=== PATIENT | female | born 1955 | race Caucasian/White ===

== ENCOUNTER 2024-08-11 06:01 | Day surgery (SDC) | payer MEDICARE, SELFPAY ==
[2024-08-11 06:18] VITALS: BMI 25.7
[2024-08-11 06:45] VITALS: BP 149/84; PULSE 65; RESP 16; TEMP 36.7; O2SAT 96
[2024-08-11] MEDS: SODIUM CHLORIDE 0.9 % (FLUSH) 10 ML SYRINGE IVF (06:47)
[2024-08-11] MEDS: BUPIVACAINE 0.25% 30 ML INJECTION (07:30)
[2024-08-11] MEDS: CEFAZOLIN 2 GM INJ IVP (07:39)
--- NOTE | 2024-08-11 07:47 | CRLHL7_ITS ---
For Patients: As a result of the Cures Act, medical imaging exams and procedure reports are released immediately into your electronic medical record. You may view this report before your referring provider. If you have questions, please contact your health care provider. Indication: RT INTRA OP FOOT HAMMER TOE Technique: One fluoroscopic image of the right forefoot. Fluoroscopic time 15.9 seconds. IMPRESSION: Fluoroscopic guidance for surgery to the forefoot. Dictated by Cash Lau MD @ 08/11/2024 10:20:27 AM (Electronically Signed)
--- NOTE | 2024-08-11 07:47 | CRLHL7_ITS ---
For Patients: As a result of the Cures Act, medical imaging exams and procedure reports are released immediately into your electronic medical record. You may view this report before your referring provider. If you have questions, please contact your health care provider. Indication: SURG FOR INTRA OP HAMMERTOE Technique: One fluoroscopic image of the left foot. Fluoroscopic time 20.3 seconds. IMPRESSION: Fluoroscopic guidance for surgery to the 4th toe. Dictated by Cash Lau MD @ 08/11/2024 10:19:38 AM (Electronically Signed)
[2024-08-11 09:58] VITALS: BP 122/69; PULSE 63; RESP 16; TEMP 36.6; O2SAT 98
[2024-08-11 10:00] VITALS: BP 121/72; PULSE 64; RESP 16; O2SAT 98
--- NOTE | 2024-08-11 10:02 | P.ANES_ITS ---
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
[2024-08-11 10:15] VITALS: BP 132/65; PULSE 66; RESP 16; O2SAT 98
[2024-08-11 10:30] VITALS: BP 139/76; PULSE 55; RESP 16; O2SAT 98
[2024-08-11] MEDS: OxyCODONE/APAP 5-325 TABLET PO (10:57)
[2024-08-11] MEDS: hydrOXYzine pamoate 25 MG CAPSULE PO (10:58)
[2024-08-11 11:00] VITALS: BP 142/68; PULSE 64; RESP 16; O2SAT 98
--- NOTE | 2024-08-11 16:30 | W.PODPROC_ITS ---
Date of Procedure: 08/11/24 Surgeon: Fab Mcginnis DPM Pre-op Diagnosis: 1. Hammertoe deformity 3rd digit left 2. Hammertoe deformity 4th digit left 3. Hammertoe deformity 3rd digit right 4. Hammertoe deformity 4th digit right Post-op Diagnosis: 1. Hammertoe deformity 3rd digit left 2. Hammertoe deformity 4th digit left 3. Hammertoe deformity 3rd digit right 4. Hammertoe deformity 4th digit right Type of Procedure: 1. Hammertoe repair 3rd digit left 2. Hammertoe repair 3rd digit right 3. Hammertoe repair 4th digit right 4. Flexor tenotomy 4th digit left Indications: Patient had previous hammertoe surgery and has had ongoing issues. She is in need of revision surgery. Reviewed the procedure, recovery, expectations potential complications. These include but are not limited to: Poor wound healing, infection, under correction, over correction, continued pain, potential need for future surgery, deep venous thrombosis, pulmonary embolism, complex regional pain syndrome, possible . She understands risks written consent was obtained. All questions answered. Site marked. Procedure Description: Patient brought the operating room placed in a supine position on the operating table. IV sedation was initiated local anesthetic injected into bilateral feet. She was prepped and draped in sterile fashion. Standard time-out protocol followed. Left foot was exsanguinated and the tourniquet inflated to 250 mm Hg. Linear incision was made over the PIPJ of the 3rd digit left foot. Incision was carried down through skin subcutaneous tissues. Transverse incision made through the extensor tendon and joint capsule. Mediolateral collateral ligaments released. Significant amount of scar tissue throughout the area. Sagittal saw was then used to resect the remnant of the head of the proximal phalanx and the base of the middle phalanx. An attempt was made to place a retro fuse screw but unfortunately the plantar cortex fractured. We then tried to pass a 2.0 mm screw from distal unfortunately no good bone could be purchase d. Finally we attempted K-wire fixation which also failed. This point we remodeled the proximal phalangeal head remove all prominence medial and lateral. I removed a small amount of bone from the lateral middle phalanx. We irrigated normal sterile saline. Was able to bring in of extensor tendon together to hold the toe in a rectus position. 4-0 Vicryl was used to reinforce the tendon. Skin was then closed with 4-0 Prolene. Third toe remained in a rectus position. Stab incision was made with a 6100 [place] blade plantar PIPJ 4th toe and the flexor tendon released. 0.045 smooth K-wire introduced in the tip of the toe driven through the distal and middle phalanx and into the proximal phalanx. This held the toe in rectus position. K-wire was bent cut and capped. Single suture placed on plantar incision with 4-0 Prolene. Sterile dressing was applied. Tourniquet was released capillary fill time returned all digits. The right foot was exsanguinated the tourniquet inflated. Linear incision was made over the PIPJ 3rd toe. Transverse incision was made through the extensor tendon and joint capsule. The medial and lateral collateral ligaments released. Oscillating saw used to resect the head of the proximal phalanx and base of the middle phalanx. Guide pin was placed into the base of the middle phalanx and driven out the tip of the toe. It was then wrapped retrogradely drilled into the proximal phalanx. Position checked with C-arm. A 30 mm x 2.0 mm cannulated cancellous screw was inserted using standard technique. Excellent compression noted at the fusion site. Area was thoroughly irrigated normal sterile saline. Extensor tendon was repaired with 4-0 Vicryl and skin closed with 4-0 Prolene. C-arm confirmed excellent position. Linear incision was made over the 4th toe PIPJ right foot. Incision carried down through skin subcutaneous tissues. Transverse incision made through the extensor tendon. Mediolateral collateral ligaments released. Head of the proximal phalanx and base of the middle phalanx were resected with an oscillating saw. Guide pin was placed in the base of the middle phalanx driven out through the tip of the toe. This was then driven retrogradely back into the proximal phalanx. 2.0 mm by 30 mm cannulated cancellous screw was inserted using standard technique. Excellent compression of the fusion site noted. The area was thoroughly irrigated normal sterile saline. Extensor tendon was repaired with 4-0 Vicryl and skin closed with 4-0 Prolene. C-arm confirmed excellent position. Sterile dressing was applied. Tourniquet was released and normal capillary fill time returned all digits. She was transferred from OR to PACU vital signs stable vascular status intact to bilateral feet. She will be discharged per same-day surgery protocol. She is to wear stiff-soled surgical shoes at all times. She is weight-bearing as tolerated. She is given oxycodone for pain. Follow up in clinic in 2 days. Complications: Fixation for the 3rd toe left foot was not possible. Anesthesia: MAC and local Hemostasis: ankle Estimated blood loss (mL): 2 Implants: Arthrex 2.0 mm cannulated screw x2, 0.045 smooth K-wire x1 Specimens: none sent Disposition: same day
== END 2024-08-11 11:50 | disposition home or self-care (01) ==
PROVIDERS: PCP Family Medicine; Visit Provider Podiatrist
PROC: (CPT 28285; principal; 2024-08-11 07:15)
DX: M20.41 Other hammer toe(s) (acquired), right foot (principal); M20.42 Other hammer toe(s) (acquired), left foot
CPT/HCPCS: 28285 ×3; 28232; 01480; 73620; 99100; A9270; C1713; J0665; J0690; J1100; J2704; J3010

== ENCOUNTER 2025-03-17 15:18 | Emergency (ER) | payer MEDICARE, SELFPAY ==
[2025-03-17] VITALS (7 sets, daily range): BP systolic 128–157; BP diastolic 79–100; PULSE 78–107; RESP 16–18; TEMP 37.1; O2SAT 98–99; BMI 26.2
--- NOTE | 2025-03-17 15:58 | ED.GENADULT ---
HPI - General Adult General Date Seen: 03/17/25 Chief complaint: Weakness Stated complaint: afib, sent from urgent care Time Seen by Provider: 03/17/25 15:33 Source: patient Mode of arrival: ambulatory Limitations: no limitations History of Present Illness HPI narrative: Patient is a 69-year-old female presenting to the emergency department for AFib with RVR. She has no other medical issues. She states for the past few months she will have intermittent episodes where she will feel palpitations and then get lightheaded. Symptoms last for anywhere between 20 minutes to 8 hours. States being getting more frequently the past few weeks. Will have some mild lightheadedness with it but does not feel like she is going to pass out. No associated chest pain or shortness of breath. Denies headache, vision changes, abdominal pain, diarrhea, constipation, weakness, numbness. She went to urgent care for her symptoms today and they sent her to the ED for her AFib. She is not currently on any blood thinners. Has not spoken to her primary care provider about this yet. No other concerns. She does states she works out 6 times a week between walking, jogging, weightlifting. Related Data Home Medications ?Medication ?Instructions ?Recorded ?Confirmed ascorbic acid (vitamin C) 1,000 mg 1 g PO DAILY 08/07/24 03/17/25 capsule cholecalciferol (vitamin D3) 25 1,000 unit PO DAILY 08/07/24 03/17/25 mcg (1,000 unit) capsule [id number]-yrloyd tablet 1 tab PO DAILY 08/07/24 03/17/25 Previous Rx's ?Medication ?Instructions ?Recorded apixaban 5 mg tablet (Eliquis) 5 mg PO BID #60 tabs 03/17/25 metoprolol succinate 25 mg 25 mg PO DAILY #30 tabs 03/17/25 tablet,extended release 24 hr Allergies Allergy/AdvReac Type Severity Reaction Status Date / Time No Known Drug Allergies Allergy Verified 03/17/25 15:30 Review of Systems Status of ROS: Reports: 10 or more systems reviewed and unremarkable except as noted in History and below [facility] Medical History SUNCT (short unilateral neuralgiform headache, conjunctival inj/tear) ?G44.059 - Short lasting unilateral neuralgiform headache with conjunctival injection and tearing (SUNCT), not intractable (ICD-10) Hammer toe ?M20.40 - Other hammer toe(s) (acquired), unspecified foot (ICD-10) JULIAN (obstructive sleep apnea) ?G47.33 - Obstructive sleep apnea (adult) (pediatric) (ICD-10) Surgical History Hx of salpingo-oophorectomy, bilateral ?Z90.79 - Acquired absence of other genital organ(s) (ICD-10) ?Z90.722 - Acquired absence of ovaries, bilateral (ICD-10) Hx of wisdom tooth extraction ?K08.409 - Partial loss of teeth, unspecified cause, unspecified class (ICD-10) Hx of hysterectomy ?Z90.710 - Acquired absence of both cervix and uterus (ICD-10) Hx of hammer toe correction ?Z98.890 - Other specified postprocedural states (ICD-10) ?Z87.39 - Personal history of other diseases of the musculoskeletal system and connective tissue (ICD-10) Social History Smoking Status: Never smoker Do you use any of these nicotine containing products: None Second hand tobacco smoke exposure: No How often do you have a drink containing alcohol: 2-3 times a week How many standard drinks containing alcohol do you have on a typical day: 1 or 2 How often do you have six or more drinks on one occasion: Never AUDIT-C Alcohol total score: 3 Non-prescribed substance use: denies use Caffeine: Yes (pop) Are you using contraception or practicing any form of control: No Exam Narrative: Exam Narrative: Const: Well-nourished, Well-developed, in mild distress Eyes: PERRL, no conjunctival injection, and symmetrical lids HENT: Atraumatic external nose and ears. Moist mucous membranes. Neck: Symmetric, trachea midline, No thyromegaly. CVS: RRR, No murmurs or gallops. Peripheral pulses 2+ and equal in all extremities RESP: Unlabored respiratory effort. Clear to auscultation bilaterally. GI: Nontender/Nondistended, No rebound or guarding. MSK:Extremities w/o deformity, Normal Active ROM Skin: Warm, Dry. No rashes or lesions. Neuro: Normal Muscle tone, No focal neurological deficits. Psych: Awake, Alert, & Oriented x3. Appropriate mood and affect. Const: Vital Signs, click to edit/add: Vital Signs - 24 hr 03/17/25 15:26 03/17/25 16:05 03/17/25 16:30 Temperature 98.7 F Pulse Rate [Right Pulse Oximeter] 107 H 100 98 Respiratory Rate 18 16 16 Blood Pressure [Ri ght Upper Arm] 157/79 H 157/79 H 141/100 H Pulse Oximetry 98 98 98 Oxygen Delivery Me thod Room Air Room Air Room Air 03/17/25 16:55 03/17/25 17:22 03/17/25 17:36 Temperature Pulse Rate [Right Pulse Oximeter] 95 82 81 Respiratory Rate 16 16 Blood Pressure [Ri ght Upper Arm] 130/91 H 128/99 H 128/97 H Pulse Oximetry 98 98 99 Oxygen Delivery Me thod Room Air 03/17/25 17:47 Temperature Pulse Rate [Right Pulse Oximeter] 78 Respiratory Rate Blood Pressure [Ri ght Upper Arm] 130/85 Pulse Oximetry Oxygen Delivery Me thod Course Vital Signs Vital signs: Initial Vital Signs Temperature 98.7 F 03/17/25 15:26 Temperature Source Temporal Artery Scan 03/17/25 15:26 Pulse Rate 107 H 03/17/25 15:26 Pulse Rhythm Irregular 03/17/25 15:26 Pulse Strength 3+ Normal 03/17/25 15:26 Respiratory Rate 18 03/17/25 15:26 Blood Pressure 157/79 H 03/17/25 15:26 Blood Pressure Mean 105 03/17/25 15:26 Blood Pressure Position Semi-Fowlers 03/17/25 15:26 Pulse Oximetry 98 03/17/25 15:26 Oxygen Delivery Method Room Air 03/17/25 15:26 Vital Signs Temperature 98.7 F 03/17/25 15:26 Pulse Rate 107 H 03/17/25 15:26 Respiratory Rate 18 03/17/25 15:26 Blood Pressure 157/79 H 03/17/25 15:26 Pulse Oximetry 98 03/17/25 15:26 Oxygen Delivery Method Room Air 03/17/25 15:26 Temperature 98.7 F 03/17/25 15:26 Pulse Rate 78 03/17/25 17:47 Respiratory Rate 16 03/17/25 17:22 Blood Pressure 130/85 03/17/25 17:47 Pulse Oximetry 99 03/17/25 17:36 Oxygen Delivery Method Room Air 03/17/25 16:55 Medications Administered Medications: Discontinued Medications Generic Name Dose Route Start Last Admin Trade Name Tika PRN Reason Stop Dose Admin Apixaban 5 mg 03/17/25 17:42 03/17/25 17:47 Apixaban 5 Mg Tablet PO 03/17/25 17:43 5 mg ONCE ONE Administration Metoprolol Tartrate 25 mg 03/17/25 16:25 03/17/25 16:08 Metoprolol Tartrate 25 Mg Tablet PO 03/17/25 16:26 25 mg ONCE ONE Administration Medical Decision Making MDM Narrative Medical decision making narrative: Patient is a 69-year-old female presenting to emergency department with AFib and RVR. Heart rate emergency department has been between 90 and 110. To really goes above that. She is in AFib though. Symptoms sound like they have been going on off for several months and I do not believe she is a candidate for cardioversion at this time. She is not on any blood thinners. Will do an EKG, CBC, BMP, BNP, troponin, TSH. Lab work shows no acute concerning abnormalities. EKG does show AFib with a rate of 114 beats per minute. TSH within normal limits. BNP is slightly elevated at 344. Concerning her relatively low heart rate with AFib I will give her dose of metoprolol. She will get a dose of the short-acting tonight and be started on long-acting tomorrow. She will also be started on Eliquis. Her [id number] score is 2. I did speak to Solange PRESCOTT, who is her primary care provider. She is agreeable with this plan. Patient is aware and agrees with this plan. Her heart rate now is in the 80s. She is still in AFib. Patient is safe for discharge and is doing well. Lab Data Labs: Lab Results 03/17/25 Range/Units 15:45 WBC 5.54 (4.50-11.00) K/uL RBC 4.39 (4.00-5.20) m/uL Hgb 14.0 (12.0-16.0) gm/dL Hct 42.6 (33.0-51.0) % MCV 97 (80-100) fL MCH 32 (26-34) pg MCHC 33 (32-36) gm/dL RDW Coeff of Harris 12.7 (11.5-15.5) % Plt Count 196 (140-440) K/uL Neut % (Auto) 63.9 (42.0-72.0) % Lymph % (Auto) 26.0 (20-44) % [place] % (Auto) 8.1 (0.0-11.0) % Eos % (Auto) 1.8 (0.0-7.0) % Baso % (Auto) 0.2 (0.0-3.0) % Neut # (Auto) 3.54 (1.7-7.0) K/uL Lymph # (Auto) 1.44 (0.90-2.90) K/uL [place] # (Auto) 0.40 (0.00-0.90) K/UL Eos # (Auto) 0.10 (0.00-0.50) K/uL Baso # (Auto) 0.01 (0.00-0.30) K/uL Abs Immat Gran (auto) 0.00 (0.00-0.30) K/uL Imm/Tot Granulo (auto) 0.0 % Sodium 142 (135-149) mmol/L Potassium 3.7 (3.6-5.1) mmol/L Chloride 106 (96-114) mmol/L Carbon Dioxide 28 (20-32) mmol/L Anion Gap 8 (7-15) mEq/L BUN 21 (7-30) mg/dL Creatinine 0.8 (0.5-1.5) mg/dL Estimated Creat Clear 42.68 Estimated GFR 79 ml/min Glucose 109 (60-115) mg/dL Calcium 9.7 (8.4-10.6) mg/dL Troponin I < 0.01 (0.01-0.04) ng/mL NT-Pro-B Natriuret Pep 344 H (See Note) pg/mL TSH 2.420 (0.270-4.200) uIU/mL ECG Data Attestation: I personally reviewed and interpreted this ECG as follows: Interpretation: AFib with a rate of 114 beats per minute, normal axis, normal QRS, normal QTC, no ST or T-wave abnormalities. Discharge Plan Discharge Clinical Impression: A-fib Patient Disposition: Home, Self-Care Condition: Stable Instructions: A-fib (Atrial Fibrillation) (ED) Additional Instructions: I spoke to your PCP, Solange Ash, make sure to follow-up pressure this week. She is aware I am starting you on metoprolol and Eliquis. She also is aware that I am ordering an echocardiogram. They will call you tomorrow to help you schedule it. His apartment he noted that while on the blood thinner your risk of bleeding is increased and is recommended you be evaluated for any head still the head. Prescriptions: New metoprolol succinate 25 mg tablet extended release 24 hr 25 mg PO DAILY Qty: 30 0RF Eliquis 5 mg tablet 5 mg PO BID Qty: 60 0RF No Action ascorbic acid (vitamin C) 1,000 mg capsule 1 g PO DAILY cholecalciferol (vitamin D3) 25 mcg (1,000 unit) capsule 1,000 unit PO DAILY [id number]-ieyarpeh-ozmmqn Tablet 1 tab PO DAILY Follow Up/Referrals: Solange Ash PA-C [Primary Care Provider, Family Practice] Stand Alone Forms: [employer] Info Instructions
[2025-03-17 16:01] LABS: Basophils Absolute Auto 0.01 K/uL (0.00-0.30); Basophils Percent Auto 0.2 % (0.0-3.0); Eosinophils Percent Auto 1.8 % (0.0-7.0); Hematocrit 42.6 % (33.0-51.0); Lymphocytes Absolute Auto 1.44 K/uL (0.90-2.90); Mean Corpuscular HGB Conc 33 gm/dL (32-36); Mean Corpuscular Hemoglobin 32 pg (26-34); Mean Corpuscular Volume 97 fL (80-100); Monocytes Percent Auto 8.1 % (0.0-11.0); Neutrophils Absolute Auto 3.54 K/uL (1.7-7.0); Neutrophils Percent Auto 63.9 % (42.0-72.0); Platelet Count* 196 K/uL (140-440); RDW Coefficient of Variation % 12.7 % (11.5-15.5); Red Blood Count 4.39 m/uL (4.00-5.20); White Blood Count* 5.54 K/uL (4.50-11.00)
[2025-03-17 16:06] LABS: Slide Review Reflex No
[2025-03-17] MEDS: METOPROLOL TARTRATE 25 MG TABLET PO (16:08)
[2025-03-17 16:15] LABS: Chloride* 106 mmol/L (96-114); Potassium* 3.7 mmol/L (3.6-5.1); Sodium* 142 mmol/L (135-149)
[2025-03-17 16:18] LABS: Anion Gap 8 mEq/L (7-15); Blood Urea Nitrogen* 21 mg/dL (7-30); Calcium* 9.7 mg/dL (8.4-10.6); Carbon Dioxide* 28 mmol/L (20-32); Creatinine* 0.8 mg/dL (0.5-1.5); Est. Creatinine Clearance* 42.68; Estimated Glomerular Filt Rate 79 ml/min; Glucose* 109 mg/dL (60-115)
--- OUTSIDE RECORDS SUMMARY | 2025-03-17 16:26 | XMS_ITS | Continuity of Care Document ---
Author Organization [place] [facility] Address [address] [place] [address] Assessment Encounter Date Assessment Date Assessment LastModified by Organization Details LastModified Time 02/23/2025 02/23/2025 1. Post-Surgical Edema and Lower Back Discomfort - Assessment: Patient is experiencing edema in the feet following foot/toe surgery. Reports tenderness and difficulty pushing off normally, which is contributing to lower back discomfort. Patient is able to wear hiking boots, which she finds satisfactory. - Plan: Continue monitoring for reduction in swelling. Encourage gentle foot and ankle exercises to improve mobility and reduce edema. Advise the use of supportive footwear to aid in recovery. Schedule follow-up in one month to reassess symptoms. 2. Spinal Subluxations and Muscular Hypertonicity - Assessment: Subluxations noted at sacral L5, right sacroiliac joint, and upper cervical C2 and C1. Moderate hypertonicity observed in lower lumbar paraspinals bilaterally. Restricted movement and decreased range of motion in the upper cervical area. - Plan: Patient was adjusted to address subluxations. Recommend stretching exercises for the lower back and neck to alleviate hypertonicity. Schedule follow-up appointment in one month to evaluate progress and determine if additional adjustments are needed. ecram Not available 02/23/2025 18:08:01 Plan of Treatment Reminders Order Date Submit Date Provider Last Modified By Organization Details Last Modified Time Details Appointments DC Treatment 05 2024 03:30P M Cornel Nicole DC Not available Not available Not available Lab None recorded. Referral None recorded. Procedures None recorded. Surgeries None recorded. Imaging None recorded. Medication Orders None recorded. Patient TargetsNo targets recorded. Patient Instructions Encounter Date Encounter Id Patient Instructions Last Modified By Organization Details Last Modified Time 02/23/2025 [id number] Instructions for Corinne Morrison Date: October 06, 2024 Jonah Sun, Thank you for visiting [facility] today. Here are your care instructions to support your recovery: 1. Post-Surgical Recovery - Continue wearing supportive footwear, such as hiking boots, to aid in your recovery. - Monitor any swelling in your feet and elevate them when resting to reduce discomfort. 2. Chiropractic Adjustments - Your adjustments today focused on the sacral, L5, and right sacroiliac joint subluxations, as well as the upper cervical subluxations (C1 and C2). - These adjustments aim to improve your range of motion and reduce muscle tightness. 3. Home Care - Perform gentle stretches as recommended to maintain flexibility in your lower back and neck. - Apply heat to the affected areas to alleviate muscle tightness and discomfort. 4. Follow-Up - Your next appointment is scheduled for one month from today. Please contact us if you experience increased pain or discomfort before then. If you have any questions or concerns, feel free to reach out. We are here to support your recovery. Dr Cornel Nicole ecram Not available 02/23/2025 18:08:01 Discussion Notes On October 06, 2024, Corinne Morrison presented for evaluation following her recent foot and toe surgery. She reported that she is now out of the surgical boot and is able to wear hiking boots, which she finds encouraging. However, she continues to experience significant swelling in her feet and soreness, which affects her ability to push off normally. This altered gait has contributed to discomfort in her lower back. During the examination, subluxations were identified in the sacral L5 and right sacroiliac joint, as well as in the upper cervical region at C1 and C2. Moderate hypertonicity was noted in the lower lumbar paraspinals bilaterally, along with restricted movement and decreased range of motion in the upper cervical area. Adjustments were performed to address these findings. A follow-up appointment has been scheduled for one month to monitor her progress and provide further care as needed. ecram Not available 02/23/2025 18:08:01 Reason for Referral None Reported. Problems Name Problem SNOMED Code Status Onset Date Resolution Date Notes Provider Name and Address Organization Details Recorded Time Somatic dysfunctio n of pelvic region 098412952 Active 2024 Cornel Nicole DC [address], [place], [address] , [place] [facility] 5 18:57:39 Somatic dysfunctio n of sacral spine 235940728 Active 2024 Cornel Nicole DC [address], [place], [address] , [place] [facility] 5 18:57:45 Spasm of muscle of lower back 8212361670881 9105 Active 2024 Cornel Nicole DC [address], [place], [address] , [place] [facility] 5 18:57:56 Cervical segmental dysfunctio n 519103476 Active 2023 Cornel Nicole DC [address], [place], [address] , [facility] 4 19:05:41 Thoracic segmental dysfunctio n 754933034 Active 2023 Cornel Nicole DC [address], [place], [address] , [place] [facility] 4 19:05:41 Neck pain 96530973 Active 2023 Not Available [facility] 4 11:19:11 Lumbar segmental dysfunctio n 130400641 Active 2023 Cornel Nicole DC [address], [place], [address] , [facility] 4 19:05:41 Problem Notes None recorded. Procedures Surgical History Date Name Laterality Status Provider Name and Address Organization Details Recorded Time 5 04210: Spinal manipulation , 3 to 4 regions completed Cornel Nicole DC [address], [place], [address], [facility] 02/23/2025 18:08:01 5 52778: Spinal manipulation , 3 to 4 regions completed Cornel Nicole DC [address], [place], [address], [facility] 01/26/2025 16:34:26 5 69222: Spinal manipulation , 3 to 4 regions completed Cornel Nicole DC [address], [place], [address], [facility] 12/29/2024 17:10:49 5 52916: Spinal manipulation , 3 to 4 regions completed Cornel Nicole DC [address], [place], [address], [facility] 12/01/2024 17:02:10 5 48959: Spinal manipulation , 3 to 4 regions completed Cornel Nicole DC [address], [place], [address], [facility] 10/06/2024 18:57:20 4 20845: Spinal manipulation , 3 to 4 regions completed Cornel Nicole DC [address], [place], [address], [facility] 09/12/2024 19:06:30 Imaging Results None recorded. Procedure Notes None recorded. Medical Equipment None Reported. Medications Name Sig Start Date Stop Date Status Note LastModified by Organization Details LastModified Time azithromycin 250 mg tablet TAKE 2 TABLETS BY MOUTH FOR 1 DAY THEN TAKE 1 TABLET BY MOUTH FOR 4 DAYS active Not Available Not Available No t Available ibuprofen 800 mg tablet TAKE 1 TABLET (800 MG) BY MOUTH EVERY 8 HOURS IF NEEDED FOR PAIN OR HEADACHE. active Not Available Not Available No t Available amoxicillin 875 mg tablet TAKE 1 TABLET BY MOUTH EVERY 12 HOURS active Not Available Not Available No t Available hydroxyzine HCl 25 mg tablet TAKE ONE-HALF TO ONE TABLET (12.5-25 MG) BY MOUTH AT BEDTIME IF NEEDED FOR ANXIETY. active Not Available Not Available No t Available fluticasone propionate 50 mcg/actuation nasal spray,suspensi on INSTILL 2 SPRAYS TO EACH NOSTRIL DAILY. active Not Available Not Available No t Available oxycodone 5 mg tablet TAKE 1-2 TABLETS (5-10 MG) BY MOUTH EVERY 4 HOURS IF NEEDED FOR PAIN. active Not Available Not Available No t Available Vitals None Recorded Social History None recorded. Functional Status None recorded. Mental Status None recorded. Family History Nothing Reported. Medical History No medical history recorded. Gynecological HistoryNo gynecological history recorded. Obstetrics History GPAL:G 0 P 0 0 0 0 Past Encounters Encounter ID Performer Location Encounter Start Date Encounter Closed Date Diagnosis/Indication Diagnosis SNOMED-CT Code Diagnosis ICD10 Code Diagnosis Note [id number] Cornel Nicole DC [facility] [address] [place] [address] 01/26/2025 16:27:10 01/26/2025 18:02:57 Somatic dysfunction of pelvic region 174832896 M99.05 Somatic dy sfunction of sacral spine 146360903 M99.04 Cervical s egmental dysfunction 421104622 M99.01 Spasm of m uscle of lower back 3785398423 4159236 M62.830 [id number] [facility] [address] [place] [address] 02/23/2025 16:45:10 02/23/2025 18:44:00 Somatic dysfunction of pelvic region 801201210 M99.05 Somatic dy sfunction of sacral spine 917532635 M99.04 Cervical s egmental dysfunction 227106040 M99.01 Spasm of m uscle of lower back 9917778111 7040499 M62.830 Health Concerns Section Related Observation LastModified by Organization Detai ls LastModified Time None Recorded Concern Status LastModified by Organization Details LastModified Time None Recorded Payers Encounter Date Sequence Insurance Name Policy Number Policy Damian Covered Member ID Damian Member ID Guarantor Name 02/23/2025 [facility] Corinne Morrison [id number] Corinne Morrison 02/23/2025 2 *SELF PAY* Co felipe Morrison Notes Date Note Type Note Provider Name and Address Organization Details Recorded Time 02/23/2025 text/html The patient is a 69-year-old female who presents withpersistent swelling and ongoing soreness in her feetfollowing recent foot/toe surgery. She reportsdifficulty with normal propulsion, which she notes isimpacting her lower back. The patient hasrecently transitioned out of the surgical bootused postoperatively. Cornel Nicole DC [address], [place], [address], [place] [facility] 02/23/2025 18:08:49 OBGyn Episode No OBEpisode recorded.
--- OUTSIDE RECORDS SUMMARY | 2025-03-17 16:26 | XMS_ITS | Encounter Summary ---
Author Organization Formerly [facility] Address [address] [place] [address] Care Team Providers Care Credit Correspondence Clerk Name Role Phone Meagan García MD Primary Care Provider [phone] Encounter Details Date Type Department Care Team (Latest Contact Info) Description 06/21/2017 Correspondence TMD at [address] [phone] Lauren Barnes, DDS, [place] [address] [place], [place] [phone] SOMNODENT ORAL DEVICE ORDER Social History Tobacco Use Types Packs/Day Years Used Date Smoking Tobacco: Never Smokeless Tobacco: Never Alcohol Use Standard Drinks/Week Comments Yes 0 (1 standard drink = 0.6 oz pur e alcohol) ONE A WEEK, if that Comments No Sex and Gender Information Value Date Recorded Sex Assigned at Not on file Legal Sex Female 3:38 AM CDT Gender Identity Not on file Sexual Orientation Not on file 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
--- OUTSIDE RECORDS SUMMARY | 2025-03-17 16:26 | XMS_ITS | Clinical Summary ---
Author Organization [facility] Address [address] [place] [address] Care Team Providers Care Auto Service Advisor Name Role Phone Solange Ash Primary Care Provider [phone] Allergies No known active allergies Medications calcium carbonate/vitamin D2 (CALCIUM + VITAMIN D ORAL) Take 1 tablet by mouth once daily. Active cholecalciferol (VITAMIN D3) 1,000 unit capsule Take 1 capsule by mouth once daily. Active multivitamins-min erals-lutein (MULTIVITAMIN 50 PLUS) tab tablet Take 1 tablet by mouth once daily. Active ascorbic acid, vitamin C, (VITAMIN C) 1,000 mg tabletIndications :Chronic diarrhea,Incontin ence of feces, unspecified fecal incontinence type Take 1 tablet by mouth once daily. 0 1 Active ibuprofen (ADVIL; MOTRIN) 800 mg tabletIndications :SUNCT (short unilateral neuralgiform headache, conjunctival inj/tear) Take 1 Tablet (800 mg) by mouth every 8 hours if needed for Pain or Headache. 60 Tablet 1 4 Active hydrOXYzine HCL (ATARAX) 25 mg tabletIndications :Anxiety state Take 0.5-1 Tablets (12.5-25 mg) by mouth at bedtime if needed for Anxiety. 30 Tablet 1 5 Active Active Problems Problem Noted Date Diagnosed Date SUNCT (short unilateral neur algiform headache, conjunctival inj/tear) 11/15/2022 Overview (11/15/2022): Occasional unilateral headache that often stems from some sort of glare. Saw neurology Dr. Lloyd. Brain MRI normal. Chronic diarrhea 09/30/2020 Overview (09/30/2020): Colonoscopy (09/25/18 [facility]) completed for cancer screening. Per report diverticulosis found in the ascending colon, hepatic flexure, transverse and sigmoid colon. Otherwise normal. No specimens collected. Repeat colonoscopy in 10 years. - Colonoscopy (09/10/08 - [facility]) completed for cancer screening. Per report, entire colon was normal, no specimens collected. Incontinence of feces 09/30/2020 JULIAN 02/22/2017 AHI- 5.3, positional 02/22/2017 Overview (11/08/2021): Not on CPAP - positional. Treated with dental device but stopped using in 2018 Home Sleep Test (HST) Interpretation Date of Interpretation: 02/22/2017 BMI: Estimated body mass index is 25.4 kg/(m^2) as calculated from the following: Height as of this encounter: 5' 4 (1.626 m). Weight as of this encounter: 148 lb (67.1 kg). Monroe Score: Monroe Score: 8 Neck Circumference: 12.75 Device Name/Type: Carefusion NOX-T3 (Type III) Hypopnea Definition:AASM Rule VIII.4.A Technical Quality: 91 % This home sleep test was performed as a/an Diagnostic study without a sleep partner in bed. She snores. The total recording time was 432.9 minutes. Snoring was reported as loud Respiratory Events: Obstructive Apneas: 22 Central Apneas: 10 Mixed Apneas: 0 Hypopneas: 6 Overall RDI: 5.3 Non-Supine RDI: (n/a) Supine RDI: 15.3 Oxygen Desaturations: Lowest O2 saturation was 86 % Total Sleep Time SpO2 was </= 88% was 0.43 minutes. Positional Data: % Time Supine: 32.1 % % Time Non-Supine: 66.4 % EKG: No significant cardiac arrhythmias were noted Impression:; JULIAN (obstructive sleep apnea)-mild (RDI 5) Hammer toe 10/24/2011 Other specified forms of hearing loss 12/17/2003 Overview (09/30/2020): bilateral hearing aides Encounters Date Type Department Care Team Description 12/26/2024 8:50 AM CDT Office Visit [facility] [address] [place] [id number] Solange Ash PA Skin Problem (sore on right foot ) 12/26/2024 Travel 12/21/2024 Travel from Last 3 Months Immunizations Immunization Administration Dates Next Due Influenza, High-dose Inactivated 07/25/2024,02/2019,06/30/2018 Influenza, High-dose Quadriv alent Inactivated 07/17/2022,07/08/2021,07/06/2020 Influenza, Inactivated AIIV4 (Age 65+ Years) Preserv Free 07/05/2023 Pneumococcal Poly,23-Valent (Pneumovax) 09/03/20 19 Pneumococcal conj 13-Valent (Prevnar 13) 018 RSV, Recombinant ADJ Reconst ituted (Arexvy 120MCG/0.5mL) 08/21/2023 Td (Age >=7 Years) 09/23/1997,05/23/1983 Tdap 08/21/2023,10/03/2017,07/31/2007 Zoster (Shingrix-RZV, recombinant) 01/20/2022, Zoster (Zostavax-ZVL, live) 09/12/2013 Family History Medical History Relation Name Comments Cancer-breast No Family History Cancer-ovarian No Family History Social History Tobacco Use Types Packs/Day Years Used Date Smoking Tobacco: Never Smokeless Tobacco: Never Tobacco Cessation:Counseling Given: Yes Alcohol Use Standard Drinks/Week Comments Yes 0 (1 standard drink = 0.6 oz pur e alcohol) couple drinks a week PHQ-2 Answer Date Recorded PHQ-2 TOTAL SCORE 2 11/18/2024 Social Connections Answer Date Recorded Do you often feel lonely or isolated from those around you? 0 11/18/2024 Financial Resource Strain Answer Date R ecorded Difficulty of Paying Living Expenses 3 11/18/2024 Difficulty of Paying Living Expenses Not on file 11/18/2024 Food Insecurity Answer Date Recorded Do you worry your food will run out before you are able to buy more? 1 11/18/2024 Transportation Needs Answer Date Record ed Does lack of transportation keep you from medica l appointments? 1 11/18/2024 Does lack of transportation keep you from work, meetings or getting things that you need? 1 11/18/2024 Housing Stability Answer Date Recorded What is your housing situation today? 1 11/18/2024 Utilities Answer Date Recorded Do you have trouble paying f or utilities (for example, heat, electricity, water, phone)? 1 11/18/2024 Comments No Sex and Gender Information Value Date Recorded Sex Assigned at Not on file Legal Sex Female 7:22 AM ASSISTED LIVING COORDINATOR Gender Identity Not on file Sexual Orientation Not on file Obstetrics History Last Filed Vital Signs Vital Sign Reading Time Taken Comments Blood Pressure 135/83 12/26/2024 8:56 AM CDT Pulse 79 12/26/2024 8:56 AM CDT Temperature 36.4 C (97.5 F) 08/27/2024 2:16 PM ASSISTED LIVING COORDINATOR Respiratory Rate 14 10/17/2007 8:00 AM ASSISTED LIVING COORDINATOR Oxygen Saturation 100% 12/26/2024 8:56 AM CDT Inhaled Oxygen Concentration - - Weight 67.6 kg (149 lb) 12/26/2024 8:56 AM CDT Height 160.9 cm (5' 3.35) 11/18/2024 7:56 AM CS T Body Mass Index 26.11 11/18/2024 7:56 AM ASSISTED LIVING COORDINATOR Plan of Treatment Health Maintenance Due Date Last Done Comments COVID-19 vaccine series ( season) 2025 07/25/2024, 07/05/2023, 07/17/2022, Additional history exists BMI (ht and wt on same day) for age 18+ 11/18/2025 11/18/2024, 07/25/2024, 11/16/2023, Additional history exists Depression screening for age 12+ 11/18/2025 11/18/2024 Medicare Wellness for age 65+ 11/19/2025 11/18/2024, 11/16/2023, 11/15/2022, Additional history exists Mammogram for age 45-75 11/24/2025 11/25/19, 11/22/2023, 11/17/2022, Additional history exists Colonoscopy through age 75 09/25/2028 09/25/2018, Lipids for age 45-75 11/18/2029 11/18/2024, 11/16/2023, 09/03/2019 (Verified in Care Everywhere or Patient Record) Tetanus booster 08/21/2033 08/21/2023, 09/24, 07/31/2007, Additional history exists Hepatitis C screening for age 18-79 Addressed 09/03/2019 (Verified in Care Everywhere or Patient Record) Overridden with the intention of not completing the topic Pneumococcal series for age 50+ Completed 09/03/2019, 08/27/2018 DEXA/DXA scan for age 65+ Completed 10/14/2020 Zoster (shingles) series for age 50+ Completed 01/20/2022, 11/05/2021, 09/12/2013 RSV vaccine for adults or Completed 08/21/2023 Tdap Completed 08/21/2023, 09/24, 07/31/2007 Influenza Vaccine Completed 07/25/2024, , 06/29/2019, Additional history exists Hepatitis B series for 19+ Aged Out N o longer eligible based on patient's age to complete this topic Procedures Procedure Name Priority Date/Time Associated Diagnosis Comments XR MAMMO LUANA BILAT SCREEN Routine 11/24/2024 9:49 AM ASSISTED LIVING COORDINATOR Encounter for screening mammogram for malignant neoplasm of breast LIPID PANEL W REFLEX MEASURED LDL Routine 11/18/2024 8:40 AM ASSISTED LIVING COORDINATOR Screening for lipid disorders XR DXA BONE DENSITY 2 SITES AXIAL Routine 10/14/2020 10:55 AM ASSISTED LIVING COORDINATOR Unspecified menopausal and perimenopausal disorder Menopausal and female climacteric states SCAN-COLONOSCOPY 09/25/2018 12:0 0 AM ASSISTED LIVING COORDINATOR from Last 3 Months or Most Recently Relevant to Health Maintenance Results * XR MAMMO LUANA BILAT SCREEN (11/24/2024 9:49 AM ASSISTED LIVING COORDINATOR) Anatomical Region Laterality Modality BREASTS, Breast Left, Breast Right Bilateral Mammography Impressions 11/24/2024 1:03 PM ASSISTED LIVING COORDINATOR There is no radiographic evidence for malignancy. Recommend annual mammograms. MAMMOGRAM ASSESSMENT: ACR 1 Negative PATIENTS: You will also receive a letter with your examination results in an easy to read format. If you have questions about your results, please contact your referring provider. Narrative 11/24/2024 1:03 PM ASSISTED LIVING COORDINATOR For Patients: As a result of the Century Cures Act, medical imaging exams and procedure reports are released immediately into your electronic medical record. You may view this report before your referring provider. If you have questions, please contact your health care provider. XR MAMMO LUANA BILAT SCREEN [[id number]] CLINICAL HISTORY: This is an asymptomatic 69 y.o. patient. INDICATION FOR EXAM: Mammogram Screening. TECHNIQUE: CC and MLO views were obtained. This study was evaluated with the assistance of Computer-Aided Detection. Breast Tomosynthesis was used in interpretation. COMPARISON FILM: Yes 11/22/23 [facility] 11/17/22 [facility] FINDINGS: There are scattered areas of fibroglandular density. There are no dominant masses, suspicious micro calcifications or areas of architectural distortion. us Solange PRESCOTT MAMMO Final Resu lt * (ABNORMAL) LIPID PANEL W REFLEX MEASURED LDL (11/18/2024 8:40 AM ASSISTED LIVING COORDINATOR) CHOLESTEROL, TOTAL 230(H) <200 mg/dL [facility] HDL CHOLESTEROL 66 > OR = 50 mg/dL [facility] TRIGLYCERIDES 179(H) <150 mg/dL [facility] LDL-CHOLESTEROL 133(H) mg/dL (calc) [facility] Comment: Reference range: <100 Desirable range <100 mg/dL for primary prevention; <70 mg/dL for patients with CHD or diabetic patients with > or = 2 CHD risk factors. LDL-C is now calculated using the Kiera calculation, which is a validated novel method providing better accuracy than the Friedewald equation in the estimation of LDL-C. Aubrey GOETZ et al. LESTER. 2013;310(19): 3728-8639 (http://education.[employer].The [employer]/faq/UGD129) CHOL/HDLC RATIO 3.5 <5.0 (calc) [facility] NON HDL CHOLESTEROL 164(H) <130 mg/dL (calc) [facility] Comment: For patients with diabetes plus 1 major ASCVD risk factor, treating to a non-HDL-C goal of <100 mg/dL (LDL-C of <70 mg/dL) is considered a therapeutic option. Blood BLOOD SPECIMEN / Unknown 11/18/2024 8:40 AM ASSISTED LIVING COORDINATOR 11/18/2024 8:40 AM ASSISTED LIVING COORDINATOR us Solange PRESCOTT CHEMISTRY Final Resu lt [facility] [address] [place] [address], [facility] [address] [place] [address] * XR DXA BONE DENSITY 2 SITES AXIAL (10/14/2020 10:55 AM ASSISTED LIVING COORDINATOR) Anatomical Region Laterality Modality Spine, HIPS, HIPL, HIPR Other Narrative 10/26/2020 9:03 AM ASSISTED LIVING COORDINATOR Please see scanned document for results of this study. us Jesi Soto MD DEXA Final Result * SCAN-COLONOSCOPY (09/25/2018 12:00 AM ASSISTED LIVING COORDINATOR) us Scanner OTHER Final Result from Last 3 Months or Most Recently Relevant to Health Maintenance Insurance [facility] MEDICARE ADVANTAGE MR Advance Directives Documents on File Type Date Recorded Patient Basket Person Expl anation Healthcare Directive 11/04/2021 8:44 AM * Full Code (Latest Code Status on File) Date Activated Date Inactivated Comments 10/16/2007 9:48 AM 10/17/2007 4:25 PM * Full Code Date Activated Date Inactivated Comments 10/16/2007 6:08 AM 10/16/2007 9:48 AM Care Teams Auto Service Advisor Relationship Specialty Start Date End Date Solange Ash PA [address] [place] [address] PCP - General Physician Crankshaft Balancer 11/19/23
--- OUTSIDE RECORDS SUMMARY | 2025-03-17 16:26 | XMS_ITS | Encounter Summary ---
Author Organization [facility] Address [address] [place] [address] Care Team Providers Care Optical Fabricator Name Role Phone Meagan García MD Primary Care Provider [phone] Encounter Details Date Type Department Care Team (Late st Contact Info) Description 07/19/2017 Correspondence TMD at [address] [address] Lauren Barnes, DDS, [place] [address] [place], [place] [phone] PROOF OF DELIVERY Social History Tobacco Use Types Packs/Day Years [...] on file Not on fi le [place] Not on file Not on file Not on file documented as of this encounter Plan of Treatment Not on file documented as of this encounter Visit Diagnoses Not on filedocumented in this encounter Care Teams Optical Fabricator Relationship Specialty Start Date End Date Meagan García MD [address] [place] [address] PCP - General 05/15/05 documented as of this encounter
--- OUTSIDE RECORDS SUMMARY | 2025-03-17 16:26 | XMS_ITS | Encounter Summary ---
Author Organization [facility] Address [address] [address] Care Team Providers Care Motor Overhauler Name Role Phone Meagan García MD Primary Care Provider [phone] Encounter Details Date Type Department Care Team (Late st Contact Info) Description 11/15/2012 Consent for Procedure/Treatme nt [facility] INFORMED CONSENT RECORD Social History Tobacco Use Types Packs/Day Years [...] on file Not on fi le [place] Not on file Not on file Not on file documented as of this encounter Progress Notes * [facility], PROVIDER - 11/15/2012 12:00 AM CST documented in this encounter Plan of Treatment Not on file documented as of this encounter Visit Diagnoses Not on filedocumented in this encounter Care Teams Motor Overhauler Relationship Specialty Start Date End Date Meagan García MD [address] [place] [address] PCP - General 05/15/05 documented as of this encounter
--- OUTSIDE RECORDS SUMMARY | 2025-03-17 16:26 | XMS_ITS | Data Portability ---
Author Organization [place] [facility], [employer] [facility] Address [address] [facility] [address] [place] [address] Assessment Encounter Date Assessment Date Assessment LastModified by Organization Details LastModified Time 10/06/2024 10/06/2024 1. Post-Surgical Edema and Lower Back Discomfort [...] and determine if additional adjustments are needed. [id number] Not available 10/06/2024 16:48:09 12/01/2024 12/01/2024 1. Post-Surgical Edema and Lower Back Discomfort [...] additional adjustments are needed. ecram Not available 12/01/2024 17:02:10 12/29/2024 12/29/2024 1. Post-Surgical Edema and Lower Back Discomfort [...] additional adjustments are needed. ecram Not available 12/29/2024 17:10:49 01/26/2025 01/26/2025 1. Post-Surgical Edema and Lower Back Discomfort [...] additional adjustments are needed. ecram Not available 01/26/2025 16:34:26 02/23/2025 02/23/2025 1. Post-Surgical Edema and Lower [...] Last Modified Time Details Appointments DC Treatment 2024 03:30P M Cornel Nicole DC Not available Not available Not available Lab None recorded. Referral None recorded. Procedures None recorded. Surgeries None recorded. Imaging None recorded. Medication Orders None recorded. Patient TargetsNo targets recorded. Patient Instructions Encounter Date Encounter Id Patient Instructions Last Modified By Organization Details Last Modified Time 10/06/2024 [id number] Instructions for Corinne Morrison Date: October 06, 2024 Jonah Sun, Thank you for visiting [facility] today. Here are [...] to support your recovery. Dr Cornel Nicole [id number] Not available 10/06/2024 16:48:10 Discussion Notes On October 06, 2024, Corinne [...] progress and provide further care as needed. [id number] Not available 10/06/2024 16:48:11 12/01/2024 [id number] Instructions for Corinne Morrison Date: October 06, 2024 Jonah Sun, Thank you for visiting [facility] today. Here are [...] recovery. Dr Cornel Nicole ecram Not available 12/01/2024 17:02:10 Discussion Notes On October 06, 2024, Corinne [...] further care as needed. ecram Not available 12/01/2024 17:02:10 12/29/2024 [id number] Instructions for Corinne Morrison Date: October 06, 2024 Jonah Sun, Thank you for visiting [facility] today. Here are [...] recovery. Dr Cornel Nicole ecram Not available 12/29/2024 17:10:49 Discussion Notes On October 06, 2024, Corinne [...] further care as needed. ecram Not available 12/29/2024 17:10:49 01/26/2025 [id number] Instructions for Corinne Morrison Date: October 06, 2024 Jonah Sun, Thank you for visiting [facility] today. Here are [...] recovery. Dr Cornel Nicole ecram Not available 01/26/2025 16:34:27 Discussion Notes On October 06, 2024, Corinne [...] further care as needed. ecram Not available 01/26/2025 16:34:27 02/23/2025 [id number] Instructions for Corinne Morrison Date: October 06, 2024 Jonah Sun, Thank you for visiting [facility] today. Here are [...] Time Somatic dysfunctio n of pelvic region 479581849 Active 2024 Cornel Nicole DC [address] [place] [address], [address] , Formerly [facility], [facility] 5 18:57:39 Somatic dysfunctio n of sacral spine 417165254 Active 2024 Cornel Nicole DC [address] [facility], [place], [address] , Formerly [facility], [facility] 5 18:57:45 Spasm of muscle of lower back 4860734801661 9105 Active 2024 Cornel Nicole DC [address] [facility], [place], [address] , Formerly [facility], [facility] 5 18:57:56 Cervical segmental dysfunctio n 369224414 Active 2023 Cornel Nicole DC [address] [facility], [place], [address] , Formerly [facility], [facility] 4 19:05:41 Thoracic segmental dysfunctio n 117873637 Active 2023 Cornel Mik Nicole, JUAN CARLOS [address] [facility], [place], [address] , Formerly [facility], [facility] 4 19:05:41 Neck pain 36730550 Active 2023 Not Available [facility] 4 11:19:11 Lumbar segmental dysfunctio n 197328564 Active 2023 Cornel Mik Nicole, JUAN CARLOS [address] [facility], [place], [address] , Formerly [facility], [facility] 4 19:05:41 Problem Notes None recorded. Procedures Surgical History Date Name Laterality Status Provider Name and Address Organization Details Recorded Time 5 82711: Spinal manipulation , 3 to 4 regions completed Cornel Nicole, JUAN CARLOS [address] [facility], [place], [address], Formerly [facility], [facility] 02/23/2025 18:08:01 5 [address]7067: Spinal manipulation , 3 to 4 regions completed Cornel Nicole, JUAN CARLOS [address] [facility], [place], [address], Formerly [facility], [facility] 01/26/2025 16:34:26 5 30847: Spinal manipulation , 3 to 4 regions completed Cornel Nicole, JUAN CARLOS [address] [facility], [place], [address], [facility]ly [facility], [facility] 12/29/2024 17:10:49 5 66048: Spinal manipulation , 3 to 4 regions completed Cornel Nicole, JUAN CARLOS [address] [facility], [place], [address], [facility]ly [facility], [facility] 12/01/2024 17:02:10 5 81794: Spinal manipulation , 3 to 4 regions completed Cornel Rodneym, DC [address] [facility], [place], [address], Formerly [facility], [facility] 10/06/2024 18:57:20 4 18133: Spinal manipulation , 3 to 4 regions completed Cornel Nicole DC [address] [facility], [place], [address], Formerly [facility], [facility] 09/12/2024 19:06:30 Imaging Results None recorded. Procedure [...] SNOMED-CT Code Diagnosis ICD10 Code Diagnosis Note [id number] JUAN CARLOS [facility] [address] [place] [address] [facility] KATY Gould [address] 09/12/2024 17:07:11 09/12/2024 19:08:59 Cervical segmental dysfunction 210977066 M99.01 Neck pain 09345597 M54.2 Thoracic s egmental dysfunction 722341740 M99.02 Lumbar seg mental dysfunction 510279446 M99.03 [id number] JUAN CARLOS [facility] [address] [facility] [address] [place] [address] 10/06/2024 16:31:40 10/06/2024 16:42:19 Somatic dysfunction of pelvic region 625398309 M99.05 Somatic dy sfunction of sacral spine 295885737 M99.04 Cervical s egmental dysfunction 449809595 M99.01 Spasm of m uscle of lower back 7581156006 5545820 M62.830 [id number] Cornel Nicole DC [address] [place] [address] 12/01/2024 16:28:51 12/02/2024 18:46:36 Somatic dysfunction of pelvic region 552003798 M99.05 Somatic dy sfunction of sacral spine 848745537 M99.04 Cervical s egmental dysfunction 037091970 M99.01 Spasm of m uscle of lower back 9814926769 5474716 M62.830 [id number] Cornel Nicole DC [address] [place] [address] 12/29/2024 16:27:48 12/29/2024 17:18:18 Somatic dysfunction of pelvic region 272631446 M99.05 Somatic dy sfunction of sacral spine 505909218 M99.04 Cervical s egmental dysfunction 575482176 M99.01 Spasm of m uscle of lower back 5025702504 8972463 M62.830 [id number] Cornel Nicole DC [address] [place] [address] 01/26/2025 16:27:10 01/26/2025 18:02:57 Somatic dysfunction of pelvic region 473198465 M99.05 Somatic dy sfunction of sacral spine 575264670 M99.04 Cervical s egmental dysfunction 693861393 M99.01 Spasm of m uscle of lower back 8256243900 0607359 M62.830 [id number] Cornel Nicole DC [address] [place] [address] 02/23/2025 16:45:10 02/23/2025 18:44:00 Somatic dysfunction of pelvic region 746033029 M99.05 Somatic dy sfunction of sacral spine 451930497 M99.04 Cervical s egmental dysfunction 270678444 M99.01 Spasm of m uscle of lower back 4591869024 3636440 M62.830 Health Concerns Section Related Observation LastModified by Organization Detai ls LastModified Time None Recorded Concern Status LastModified by Organization Details LastModified Time None Recorded Advance Directives Directive None Recorded Payers Insurance Date Sequence Insurance Name Policy Number Policy Damian Covered Member ID Damian Member ID Guarantor Name 12/02/2024 1 [employer] - DOS ON OR AFTER 19 (MEDICARE REPLACEMENT/ ADVANTAGE - HMO) [id number] Corinne Morrison [id number] Corinne Morrison 09/16/2024 [facility] Corinne Morrison [id number] Corinne Morrison 09/12/2024 2 *SELF PAY* [employer] fel[place] Morrison Notes Date Note Type Note Provider Name and Address Organization Details Recorded Time 10/06/2024 text/html The patient is a 69-year-old female who presents withpersistent swelling and ongoing soreness in her feetfollowing recent foot/toe surgery. She reportsdifficulty with normal propulsion, which she notes isimpacting her lower back. The patient hasrecently transitioned out of the surgical bootused postoperatively. Cornel Nicole DC [address] [facility], [address], Formerly [facility], [facility] 10/06/2024 18:58:09 12/01/2024 text/html The patient is a 69-year-old female who presents withpersistent swelling and ongoing soreness in her feetfollowing recent foot/toe surgery. She reportsdifficulty with normal propulsion, which she notes isimpacting her lower back. The patient hasrecently transitioned out of the surgical bootused postoperatively. Cornel Nicole DC [address] [facility], [place], [address], Formerly [facility], [facility] 12/01/2024 17:03:28 12/29/2024 text/html The patient is a 69-year-old female who presents withpersistent swelling and ongoing soreness in her feetfollowing recent foot/toe surgery. She reportsdifficulty with normal propulsion, which she notes isimpacting her lower back. The patient hasrecently transitioned out of the surgical bootused postoperatively. Cornel Nicole DC [address] [facility], [place], [address], [facility]ly [facility], [facility] 12/29/2024 17:11:54 01/26/2025 text/html The patient is a 69-year-old female who presents withpersistent swelling and ongoing soreness in her feetfollowing recent foot/toe surgery. She reportsdifficulty with normal propulsion, which she notes isimpacting her lower back. The patient hasrecently transitioned out of the surgical bootused postoperatively. Cornel Nicole DC [address] [facility], [place], [address], [facility]ly [facility] 01/26/2025 16:35:13 02/23/2025 text/html The patient is a 69-year-old female who presents withpersistent swelling and ongoing soreness in her feetfollowing recent foot/toe surgery. She reportsdifficulty with normal propulsion, which she notes isimpacting her lower back. The patient hasrecently transitioned out of the surgical bootused postoperatively. Cornel Nicole DC [address] [facility], [place], [address], [facility]ly [facility] 02/23/2025 18:08:49 OBGyn Episode No OBEpisode recorded.
--- OUTSIDE RECORDS SUMMARY | 2025-03-17 16:26 | XMS_ITS | Encounter Summary ---
Author Organization [facility] Address [address] [place] [address] Care Team Providers Care Food Production Associate Name Role Phone Meagan García MD Primary Care Provider [phone] Encounter Details Date Type Department Care Team (Latest Contact Info) Description 07/19/2017 Correspondence TMD at [address] [phone] Lauren Barnes, LISSYS, [place] [address] [place], [place] [id number] NOTICE FROM PROVIDER AND PAW Social History Tobacco Use Types Packs/Day Years [...] on file Not on fi le [place] Not on file Not on file Not on file documented as of this encounter Plan of Treatment Not on file documented as of this encounter Visit Diagnoses Not on filedocumented in this encounter Care Teams Food Production Associate Relationship Specialty Start Date End Date Meagan García MD [address] [place], [place] [id number] PCP - General 05/15/05 documented as of this encounter
--- OUTSIDE RECORDS SUMMARY | 2025-03-17 16:26 | XMS_ITS | Encounter Summary ---
[facility] Address [address], [place] [address] Care Team Providers Care Funeral Pre Need Consultant Name Role Phone Meagan García MD Primary Care Provider [phone] Encounter Details Date Type Department Care Team (Late st Contact Info) Description 08/12/2012 Emergency Room External to [facility] Social History Tobacco Use Types Packs/Day Years [...] as of this encounter Progress Notes * Reece Razo Provider - 08/12/2012 12:00 AM CST SETTER documented in this encounter Plan of Treatment Not on file documented as of this encounter Visit Diagnoses Not on filedocumented in this encounter Care Teams Funeral Pre Need Consultant Relationship Specialty Start Date End Date Meagan García MD [address] [place] [address] PCP - General 05/15/05 documented as of this encounter
--- OUTSIDE RECORDS SUMMARY | 2025-03-17 16:26 | XMS_ITS | Encounter Summary ---
Author Organization [facility] Address [address], [place] [address] Care Team Providers Care Financial Institution President Name Role Phone Meagan García MD Primary Care Provider [phone] Encounter Details Date Type Department Care Team (Late st Contact Info) Description 09/12/2013 Consent for Procedure/Treatme nt [facility] INFORMED CONSENT RECORD Social History Tobacco [...] on file Not on fi le [place] Not on file Not on file Not on file documented as of this encounter Progress Notes * [facility], PROVIDER - 09/12/2013 12:00 AM CST ERCIAL CREDIT LEAD documented in this encounter Plan of Treatment Not on file documented as of this encounter Visit Diagnoses Not on filedocumented in this encounter Care Teams Financial Institution President Relationship Specialty Start Date End Date Meagan García MD [address] [place] [address] PCP - General 8/22/05 documented as of this encounter
--- OUTSIDE RECORDS SUMMARY | 2025-03-17 16:26 | XMS_ITS | Clinical Summary ---
[facility] Address [address] [address] Care Team Providers Care Shot Core Drill Operator Helper Name Role Phone Meagan García MD Primary Care Provider [phone] Source Comments You are receiving this document as you are listed as the primary care provider,follow-up provider, or the patient has been referred to you for consultation.This is in compliance with the Medicare and[facility] EHR Incentive Program,which states Providers who transition their patient to another setting of careor provider of care or refers their patient to another provider of care shouldprovide summary care record for each transition of care or referral. [employer] Allergies No known active allergies Medications * This document contains information received from the source organization and may not represent a complete record from that organization. Calcium Citrate-Vitami n D (CITRACAL + D OR) Take 1 tablet daily Active Cholecalcifero l (VITAMIN D) 1000 UNIT capsule Take 1 tablet daily Active ascorbic acid (ASCORBIC ACID) 500 MG tablet Take 500 mg by mouth daily. Active Multiple Vitamins-Instructional Media Services Technician als (CENTRUM SILVER OR) Take 1 tablet daily Active fluticasone (FLONASE) 50 MCG/ACT nasal solution SPRAY TWICE IN EACH NOSTRIL ONCE DAILY. DECREASE TO 1 SPRAY IN EACH NOSTRIL ONCE DAILY IF SYMPTOMS CONTROLLED 48 g 7 Active Additional Information Patient not taking.Reported on 11/28/2019 acetaminophen (TYLENOL) 500 MG tablet Take 1 Tab by mouth every 4 hours as needed for Pain (Mild Pain). Maximum acetaminophen dose is 4000 mg in 24 hours 100 Tab 11 8 Active Additional Information Patient not taking.Reported on 11/28/2019 ibuprofen (MOTRIN) 200 MG tablet Take 2 Tabs by mouth every 6 hours as needed for Pain (Mild Pain). This may be safely mixed with the prescription pain medications (oxycodone, hydrocodone or tramadol.) This may also be safely mixed with acetaminophen. 100 Tab 8 Active Additional Information Patient not taking.Reported on 11/28/2019 psyllium (KONSYL) 30.9 % powder Take by mouth daily. Active aluminum & magnesium hydroxide-shellie thicone (MAGNESIUM-ALU MINUM-SIMETHEC ONE) 400-400-40 MG/5ML suspension Take 15 mL by mouth every 4 hours as needed. Active Active Problems Problem Noted Date Diagnosed Date JULIAN (obstructive sleep apnea) 02/22/2017 Overview (05/16/2017): Home Sleep Test (HST) Interpretation Date of Interpretation: 02/22/2017 BMI: Estimated body mass index is 25.4 kg/(m^2) as calculated from the following: Height as of this encounter: 5' 4 (1.626 m). Weight as of this encounter: 148 lb (67.1 kg). 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 04/26/2007 11/04/2007 Depression 12/12/2006 11/26/2009 Ovarian cyst 08/30/2006 04/26/2007 Fibroid, uterine 08/30/2006 08/11/2008 Overview (05/16/2017): Uterine Fibroid Dysmenorrhea 02/27/2005 07/27/2006 Varicella 12/30/1999 07/27/2006 Overview (06/24/2015): [facility] Immunizations Immunization Administration Dates Next Due Flu Vac (3+ yrs) 08/30/2012, 2,09/30/2010,2007,07/31/2007 H1n1 Miv Sanofi 3+ Yr (Injected) 10/23/2009 Influenza IIV4 (Quadrivalent ) 0.5mL ([id number]) 07/19/2017,08/01/2016,07/16/2015,2013 Influenza Vaccine QIV 3+ yrs 100% Pres Free ([facility]) 08/05/2013 Influenza, Unspecified Formulation 07/07/2009 Td 09/23/1997,05/23/1983 Tdap 10/03/2017,07/31/2007 Varicella 12/30/1999(Deferred: Immune by Luis Fernando padron) Zoster (Zostavax) 09/12/2013 Family History Medical History Relation Name Comments Deafness Father son Diabetes Father Heart Disease Father bypass age 78 Hypertension Father Inflammatory Bowel Disease Father Diabetes Mother 78 Eczema Mother Obesity Mother Diabetes Sister 4 Diabetes Sister 5 Cerebrovascular Disease Sister 6 diab etes, stroke Cancer, Breast Negative Family History Cancer, Ovary Negative Family History Relation Name Status Comments Father (Age 91) Mother (Age 78) diabetes Brother Alive forde's lung Maternal Grandfather Maternal Grandmother Other Alive Paternal Grandfather Paternal Grandmother Sister 1 Alive [place]- stroke Sister 2 Alive Sister 3 Sister 4 Sister 5 Sister 6 Social History Tobacco Use Types Packs/Day Years [...] on file Not on fi le [place] Not on file Not on file Not on file Last Filed Vital Signs Vital Sign Reading Time Taken Comments Blood Pressure 139/79 11/28/2019 2:05 PM JOB FOREMAN Pulse 79 11/28/2019 2:05 PM JOB FOREMAN Temperature 36.6 C (97.9 F) 11/26/2017 1:06 PM JOB FOREMAN Respiratory Rate 18 11/28/2019 2:05 PM JOB FOREMAN Oxygen Saturation 96% 10/19/2017 9:43 AM JOB FOREMAN Inhaled Oxygen Concentration - - Weight 65.3 kg (144 lb) 11/28/2019 2:05 PM JOB FOREMAN Height 161.3 cm (5' 3.5) 11/26/2017 1:06 PM JOB FOREMAN Body Mass Index 25.11 11/26/2017 1:06 PM JOB FOREMAN Plan of Treatment Health Maintenance Due Date Last Done Comments Medicare Welcome Visit 1955 Zoster/Shingles Vaccine (2 of 3) 11/07/2013 09/12/2013 Dexa 2018 Mammogram 01/04/2019 01/04/2018, 12/23, 01/03/2016, Additional history exists Cholesterol 11/22/2021 11/22/2016, 09/26, 07/31/2007, Additional history exists COVID-19 Vaccine ( season) 2024 12/25/2020, 11/24/2020 Influenza Vaccine (Season Ended) 2025 07/06/2020, 06/29/2019, 06/30/2018, Additional history exists DTaP/Tdap/Td Vaccine (3 - Tdap) 10/03/2027 10/03/2017, 07/31/2007, 09/23/1997, Additional history exists RSV Vaccine (1 - 1-dose 75+ series) 2028 Colonoscopy 09/25/2028 09/25/2018, 08/24, 09/10/2008, Additional history exists Hep C Screening (Preventive Services) Completed 10/09/2014 Pneumococcal Vaccine 50+ Yrs Completed 09/03/2019, 08/27/2018 HepA Vaccine Aged Out No longer eligi ble based on patient's age to complete this topic HepB Vaccine Aged Out No longer eligi ble based on patient's age to complete this topic Hib Vaccine Aged Out No longer eligi ble based on patient's age to complete this topic IPV (Polio) Vaccine Aged Out No longe r eligible based on patient's age to complete this topic MCV4 Vaccine Aged Out No longer eligi ble based on patient's age to complete this topic Meningococcal B Vaccine Aged Out No l onger eligible based on patient's age to complete this topic Medical Devices Implanted Type Area Mental Health Program Specialist Device Identifier Shelf Expiration Date Model / Serial / Lot Mar-8930-12 - [id number] Implanted:Qty: 1 on 09/29/2013 by Gadiel Kaba DPM at [facility] DEVICE Right: FOOT AR-8930-1 2 / / Description:CFS 2MM QUICKIEF IX SCREWSCOMPREHENSIVE FOOT SYSTEM X12MM Nov-8931-13 - [id number] Implanted:Qty: 1 on 09/29/2013 by Gadiel Kaba DPM at [facility] DEVICE Right: FOOT AR-8931-1 3 / / Description:3MM QUICKIEFIX S CREW X13MM CFS- COMPREHENSIVE FOOT SYSTEM K-Wire .045 - [id number] Implanted:Qty: 1 on 09/29/2013 by Gadiel Kaba DPM at [facility] DEVICE Right: TOE [employer] 71-102 / / Procedures Procedure Name Priority Date/Time Associated Diagnosis Comments COLONOSCOPY S 09/25/2018 MM MAMMOGRAM SCREENING BILAT W 3D ERLIN W CAD Routine 01/04/2018 1:42 PM CDT Visit for screening mammogram LIPID PANEL & DIRECT LDL (IF NEEDED) Routine 11/22/2016 10:50 AM JOB FOREMAN Screening for cholesterol level HEPATITIS C ANTIBODY, WITH REFLEX (ANTI-HCV) Routine 10/09/2014 10:12 AM JOB FOREMAN Need for hepatitis C screening test from Last 3 Months or Most Recently Relevant to Health Maintenance Results * COLONOSCOPY S (09/25/2018) us Interface Provider DUMMY/OTHER/AR Final Resu lt * MM Mammogram Screening Bilat W Erlin W CAD (01/04/2018 1:42 PM CDT) Anatomical Region Laterality Modality Breast Bilateral Mammography Impressions 01/07/2018 4:08 PM CDT : ACR BI-RADS Category 1: Negative RECOMMENDATION: Follow Up Imaging in 12 months - Bilateral The results and recommendations of this examination will be communicated to the patient. Narrative 01/07/2018 4:08 PM CDT MM MAMMOGRAM SCREENING BILAT W ERLIN W CAD performed on 01/04/18 Compared to: 01/03/2017 MM Mammogram Screening Bilat W Erlin W CAD, 01/03/2016 MAMMOGRAM SCREENING BILATERAL, and 01/01/2015 MAMMOGRAM SCREENING BILATERAL FINDINGS: Bilateral screening mammogram was performed with the assistance of Computer-Aided Detection and breast tomosynthesis. The breasts have scattered areas of fibroglandular density. There is no radiographic evidence of malignancy. us Meagan García MD RAD BIBIANA Final Result * (ABNORMAL) Lipid Panel and Direct LDL(If Needed) (11/22/2016 10:50 AM JOB FOREMAN) Hours Fasting 13 hours [facility] Cholesterol 205(H) 0 - 199 mg/dl [facility] Triglyceride 92 0 - 149 mg/dl [facility] HDL 64 >40 mg/dl [facility] LDL, Calc. 123 0 - 129 mg/dl [facility] Non HDL Chol, Calc 141 mg/dl [facility] 11/22/2016 10:5 0 AM JOB FOREMAN 11/22/2016 10:51 AM JOB FOREMAN Narrative [facility] - 11/22/2016 6:34 PM JOB FOREMAN Performed at [facility], [address] [place], [place] [id number] Meagan García MD LAB_1 Final Result Performing Organization Address City/[facility] Co de Phone Number [facility] [phone] * HEPATITIS C ANTIBODY, WITH REFLEX (10/09/2014 10:12 AM JOB FOREMAN) Anti-HCV Negative (Non Reactive) NEGNR [facility] Comment:Does Not Rule Out In fection with HCV 10/09/2014 10:1 2 AM JOB FOREMAN 10/09/2014 10:13 AM JOB FOREMAN Narrative [facility] - 10/12/2014 12:35 PM JOB FOREMAN Performed at [facility], [address] [place] [address] us Meagan García MD LAB_1 Final Result Performing Organization Address City/[facility] Co de Phone Number [facility] [phone] from Last 3 Months or Most Recently Relevant to Health Maintenance Insurance [facility] MEDICARE HP PREVENTIVE FI FEDS DENTAL Advance Directives * No Code Status (Latest Code Status on File) Date Activated Date Inactivated Comments 07/14/2005 9:27 AM 07/14/2005 9:27 AM Care Teams Shot Core Drill Operator Helper Relationship Specialty Start Date End Date Meagan García MD [address] [place] [address] PCP - General 05/15/05
--- OUTSIDE RECORDS SUMMARY | 2025-03-17 16:26 | XMS_ITS | Encounter Summary ---
Author Organization [facility] Address [address], [place] [address] Care Team Providers Care Sheet Pile Hammer Operator Name Role Phone Meagan García MD Primary Care Provider [phone] Encounter Details Date Type Department Care Team (Late st Contact Info) Description 02/21/2017 Consent for Procedure/Treatme nt [facility] INFORMED CONSENT FOR SLEEP/AUDIO/VIDEO Social History Tobacco Use Types Packs/Day Years [...] on file Not on fi le [place] Not on file Not on file Not on file documented as of this encounter Plan of Treatment Not on file documented as of this encounter Visit Diagnoses Not on filedocumented in this encounter Care Teams Sheet Pile Hammer Operator Relationship Specialty Start Date End Date Meagan García MD [address] [place] [address] PCP - General 05/15/05 documented as of this encounter
[2025-03-17 16:29] LABS: NT Pro B Type NatriureticPept* 344 pg/mL (See Note)
[2025-03-17 16:41] LABS: Troponin I* < 0.01 ng/mL (0.01-0.04)
[2025-03-17] MEDS: APIXABAN 5 MG TABLET PO (17:47)
== END 2025-03-17 17:58 | disposition home or self-care (01) ==
PROVIDERS: Emergency Provider Student in an Organized Health Care Education/Training Program; PCP Physician Assistant
DX: I48.91 Unspecified atrial fibrillation (principal); R00.2 Palpitations; R42 Dizziness and giddiness
CPT/HCPCS: 36415; 80048; 83880; 84443; 84484; 85025; 93005; 96374; 99284; A9270

== ENCOUNTER 2025-03-19 14:45 | Outpatient (CLI) | payer MEDICARE, SELFPAY ==
--- OUTSIDE RECORDS SUMMARY | 2025-03-20 00:55 | XMS_ITS | Encounter Summary ---
[facility] Address [address] [address] Care Team Providers Care Bottom Cementer Name Role Phone Meagan García MD Primary Care Provider [phone] Encounter Details Date Type Department Care Team (Late st Contact Info) Description 09/12/2013 Consent for Procedure/Treatme nt [facility] Department INFORMED CONSENT RECORD Social History Tobacco [...] on file Not on fi le [place] Not on file Not on file Not on file documented as of this encounter Progress Notes * [facility], PROVIDER - 09/12/2013 12:00 AM CST RY BAR OPERATOR documented in this encounter Plan of Treatment Not on file documented as of this encounter Visit Diagnoses Not on filedocumented in this encounter Care Teams Bottom Cementer Relationship Specialty Start Date End Date Meagan García MD [address] [place] [address] PCP - General 8/22/05 documented as of this encounter
--- OUTSIDE RECORDS SUMMARY | 2025-03-20 00:55 | XMS_ITS | Encounter Summary ---
Author Organization [facility] Address [address] [place] [address] Care Team Providers Care Rail Assembler Name Role Phone Meagan García MD Primary Care Provider [phone] Encounter Details Date Type Department Care Team (Latest Contact Info) Description 06/21/2017 Correspondence TMD at [address] [phone] Lauren Barnes, DDS, [place] [address] [place], [place] [phone] SOMNODENT ORAL DEVICE ORDER Social History Tobacco [...] on file Not on fi le [place] Not on file Not on file Not on file documented as of this encounter Plan of Treatment Not on file documented as of this encounter Visit Diagnoses Not on filedocumented in this encounter Care Teams Rail Assembler Relationship Specialty Start Date End Date Meagan García MD [address] [place] [address] PCP - General 05/15/05 documented as of this encounter
--- OUTSIDE RECORDS SUMMARY | 2025-03-20 00:55 | XMS_ITS | Continuity of Care Document ---
Author Organization [facility] Address [address] [place] [address] Assessment Encounter Date Assessment Date Assessment LastModified [...] By Organization Details Last Modified Time 02/23/2025 [id number] Instructions for Corinne Morrison Date: October 06, [...] Time Somatic dysfunctio n of pelvic region 457815091 Active 2024 Cornel Nicole DC [address], [place], [address] , [place] [facility] 5 18:57:39 Somatic dysfunctio n of sacral spine 858364185 Active 2024 Cornel Nicole DC [address], [place], [address] , [facility] - [facility] 5 18:57:45 Spasm of muscle of lower back 5410326699993 9105 Active 2024 Cornel Nicole DC [address], [place], [address] , [facility] - [facility] 5 18:57:56 Cervical segmental dysfunctio n 599937281 Active 2023 Cornel Nicole DC [address], [place], [address] , [facility] 4 19:05:41 Thoracic segmental dysfunctio n 003871199 Active 2023 Cornel Nicole DC [address], [place], [address] , [facility] - [facility] 4 19:05:41 Neck pain 95497807 Active 2023 Not Available [facility] 4 11:19:11 Lumbar segmental dysfunctio n 864076038 Active 2023 Cornel Nicole DC [address], [place], [address] , [facility] 4 19:05:41 Problem Notes None recorded. Procedures Surgical History Date Name Laterality Status Provider Name and Address Organization Details Recorded Time 5 91884: Spinal manipulation , 3 to 4 regions completed Cornel Nicole DC [address], [place], [address], [facility] 02/23/2025 18:08:01 5 24379: Spinal manipulation , 3 to 4 regions completed Cornel Nicole DC [address], [place], [address], [facility] 01/26/2025 16:34:26 5 37996: Spinal manipulation , 3 to 4 regions completed Cornel Nicole DC [address], [place], [address], [facility] 12/29/2024 17:10:49 5 56923: Spinal manipulation , 3 to 4 regions completed Cornel Nicole DC [address], [place], [address], [facility] 12/01/2024 17:02:10 5 47230: Spinal manipulation , 3 to 4 regions completed Cornel Nicole DC [address], [place], [address], [facility] 10/06/2024 18:57:20 4 62549: Spinal manipulation , 3 to 4 regions completed Cornel Nicole DC [address], [place], [address], [facility] 09/12/2024 19:06:30 Imaging Results None recorded. Procedure [...] SNOMED-CT Code Diagnosis ICD10 Code Diagnosis Note [id number] Cornel Nicole DC [facility] [address] [place] [address] 01/26/2025 16:27:10 01/26/2025 18:02:57 Somatic dysfunction of pelvic region 276314541 M99.05 Somatic dy sfunction of sacral spine 155320658 M99.04 Cervical s egmental dysfunction 970254240 M99.01 Spasm of m uscle of lower back 9073084672 2325420 M62.830 [id number] [facility] [address] [place] [address] 02/23/2025 16:45:10 02/23/2025 18:44:00 Somatic dysfunction of pelvic region 191729801 M99.05 Somatic dy sfunction of sacral spine 870714281 M99.04 Cervical s egmental dysfunction 212536272 M99.01 Spasm of m uscle of lower back 5532534655 3628629 M62.830 Health Concerns Section Related Observation LastModified by Organization Detai ls LastModified Time None Recorded Concern Status LastModified by Organization Details LastModified Time None Recorded Payers Encounter Date Sequence Insurance Name Policy Number Policy Damian Covered Member ID Damian Member ID Guarantor Name 02/23/2025 [facility] Corinne Morrison [id number] Corinne Morrison 02/23/2025 2 *SELF PAY* Co [...] surgical bootused postoperatively. Cornel Nicole DC [address], [place], [address], [facility] - [facility] 02/23/2025 18:08:49 OBGyn Episode No OBEpisode recorded.
--- OUTSIDE RECORDS SUMMARY | 2025-03-20 00:55 | XMS_ITS | Encounter Summary ---
Author Organization [facility] Address [address] [place] [address] Care Team Providers Care Pet Feeder Name Role Phone Meagan García MD Primary Care Provider [phone] Encounter Details Date Type Department Care Team (Latest Contact Info) Description 07/19/2017 Correspondence TMD at [address] [phone] Lauren Barnes, LISSYS, [place] [address] [place], [place] [phone] [id number] NOTICE FROM PROVIDER AND PAW Social History [...] on filedocumented in this encounter Care Teams Pet Feeder Relationship Specialty Start Date End Date Meagan García MD [address] [place], [place] [phone] PCP - General 05/15/05 documented as of this encounter
--- OUTSIDE RECORDS SUMMARY | 2025-03-20 00:55 | XMS_ITS | Encounter Summary ---
Author Organization [facility] Address [address] [place] [address] Care Team Providers Care Circulation Manager Name Role Phone Meagan García MD Primary Care Provider [phone] Encounter Details Date Type Department Care Team (Late st Contact Info) Description 07/19/2017 Correspondence TMD at [address] [address] Lauren Barnes, DDS, [place] [address] [place], [place] [phone] PROOF OF DELIVERY Social History Tobacco Use [...] on file Not on fi le [place] Not on file Not on file Not on file documented as of this encounter Plan of Treatment Not on file documented as of this encounter Visit Diagnoses Not on filedocumented in this encounter Care Teams Circulation Manager Relationship Specialty Start Date End Date Meagan García MD [address] [place] [address] PCP - General 05/15/05 documented as of this encounter
--- OUTSIDE RECORDS SUMMARY | 2025-03-20 00:56 | XMS_ITS | Clinical Summary ---
Author Organization [facility] Address [address] [place] [id number] Care Team Providers Care Business Development Assistant Name Role Phone Solange Ash Primary Care Provider [phone] Allergies No known active allergies Medications calcium [...] Chronic diarrhea 09/30/2020 Overview (09/30/2020): Colonoscopy (09/25/18 [facility]) completed for cancer screening. Per report diverticulosis found in the ascending colon, hepatic flexure, transverse and sigmoid colon. Otherwise normal. No specimens collected. Repeat colonoscopy in 10 years. - Colonoscopy (09/10/08 - [facility]) completed for cancer screening. Per report, [...] of this encounter: 148 lb (67.1 kg). Gallatin Score: Gallatin Score: 8 Neck Circumference: 12.75 Device Name/Type: [...] Encounters Date Type Department Care Team Description 03/19/2025 3:00 PM CDT Ancillary Procedure [facility] [address] [place] [address] Arrived 12/26/2024 8:50 AM CDT Office Visit [facility] [address] [place] [address] Solange Ash PA Skin Problem (sore on [...] on file Legal Sex Female 7:22 AM PHOTO RETOUCHER Gender Identity Not on file Sexual Orientation Not on file Obstetrics History Last Filed Vital Signs Vital Sign Reading Time Taken Comments Blood Pressure 135/83 12/26/2024 8:56 AM CDT Pulse 79 12/26/2024 8:56 AM CDT Temperature 36.4 C (97.5 F) 08/27/2024 2:16 PM PHOTO RETOUCHER Respiratory Rate 14 10/17/2007 8:00 AM PHOTO RETOUCHER Oxygen Saturation 100% 12/26/2024 8:56 AM CDT Inhaled Oxygen Concentration - - Weight 67.6 kg (149 lb) 12/26/2024 8:56 AM CDT Height 160.9 cm (5' 3.35) 11/18/2024 7:56 AM CS T Body Mass Index 26.11 11/18/2024 7:56 AM PHOTO RETOUCHER Plan of Treatment Upcoming Encounters Date Type Department Care Team (Late st Contact Info) Description 04/06/2025 11:10 AM CDT Office Visit [facility] [address] [place] [address] Solange Ash PA [address] [place] [address] Health Maintenance Due Date Last Done Comments [...] Procedure Name Priority Date/Time Associated Diagnosis Comments ECHO TTE COMPLETE WO CONTRAST Routine 03/19/2025 3:25 PM CDT A-fib (HC) XR MAMMO LUANA BILAT SCREEN Routine 11/24/2024 9:49 AM PHOTO RETOUCHER Encounter for screening mammogram for malignant neoplasm of breast LIPID PANEL W REFLEX MEASURED LDL Routine 11/18/2024 8:40 AM PHOTO RETOUCHER Screening for lipid disorders XR DXA BONE DENSITY 2 SITES AXIAL Routine 10/14/2020 10:55 AM PHOTO RETOUCHER Unspecified menopausal and perimenopausal disorder Menopausal and female climacteric states SCAN-COLONOSCOPY 09/25/2018 12:0 0 AM PHOTO RETOUCHER from Last 3 Months or Most Recently Relevant to Health Maintenance Results * ECHO TTE COMPLETE WO CONTRAST (03/19/2025 3:25 PM CDT) AORTIC VALVE MEAN PG 5 mmHg EJECTION FRACTION 68 % PEAK TR VELOCITY 2.4 m/s LVEDD 3.6 cm EJECTION FRACTION 65 - 70% Anatomical Region Laterality Modality Ultrasound 03/19/2025 2:57 PM CDT Narrative 03/19/2025 3:37 PM CDT ECHOCARDIOGRAM IRAIS FARRIS : 1955 69 years Study Date: 03/19/2025 2:57:34 PM Gender: F BP: 171/81 mmHg Height: 160.00 cm BSA: 1.70 m Weight: 67.00 kg Tech: TIFFANIE Referring MD: AVTAR VINSON Site: [facility] Reading Location: Mobile-OP Patient Location: Outpatient. Procedure: 2D, Color Doppler and Spectral Doppler. Indication for study: A Fib Cardiac Rhythm: Normal sinus and with premature atrial contractions.Study quality: Excellent. Final Impressions: 1. Normal LV size, normal wall thickness, estimated EF of 65 - 70%. 2. Normal RV size and systolic function. 3. Mildly enlarged left atrium. 4. The aortic valve is trileaflet and sclerotic, no stenosis and trivial regurgitation. 5. The mitral valve is normal, mild mitral regurgitation. 6. The inferior vena cava is normal sized, respiratory size variation greater than 50%. Chamber Sizes and Function Normal left ventricular size, normal wall thickness, normal global systolic function with an estimated EF of 65 - 70%. No resting regional wall motion abnormality visualized. Left atrial size is mildly enlarged. Right ventricular cavity size is normal, global systolic RV function is normal. RV wall thickness is normal. The right atrium is mildly enlarged. Right atrial volume index is 34 ml/m . Right atrial area is 19 cm . The pulmonary artery is of normal size and origin. The sinus of Valsalva is normal sized. The ascending aorta is normal sized. Valves, RV Pressures and Diastolic Function The aortic valve is trileaflet and sclerotic, no stenosis and trivial regurgitation. The mitral valve is normal in structure, mild mitral regurgitation. Indeterminate pattern of LV diastolic filling. The tricuspid valve is normal in structure, mild tricuspid regurgitation. The tricuspid regurgitant velocity is 2.4 m/s, the estimated right ventricular systolic pressure is 23 mmHg plus right atrial pressure. The pulmonic valve is normal. Trace pulmonary regurgitation. Masses, Effusion, Shunts There is no pericardial effusion. The inferior vena cava is normal sized, respiratory size variation greater than 50%. No left to right shunting was detected by limited color flow Doppler interrogation of the interatrial septum. MEASUREMENTS AND CALCULATIONS 2-D Measurements and LV Function: LVID (d) 3.6 cm LV FS% (2D) 23 % LVID (s) 2.8 cm LVOT diameter 1.9 cm IVS (d) 0.9 cm HR 62 bpm LVPW (d) 1.0 cm LA Vol index 34 ml/m2 Ao Sinus 2.8 cm RA Vol index 34 ml/m2 Ao Sinus ULN 3.7 cm RA area 19 cm Asc Ao 2.4 cm RV Basal Diam 3.5 cm Asc Ao ULN 3.9 cm RV Mid Diam 3.1 cm LA 3.5 cm Diastology: Mitral Tissue Doppler E Peak 1.1 m/s e', Septum 0.08 m/s A Peak 0.9 m/s e', Lateral 0.09 m/s E/A 1.3 E/e' Average 12.73 DT 179 msec Aortic Valve: Vmax 1.5 m/s VIGNESH (V) 2.04 cm AI P 1/2 818 msec VTI 0.36 m VIGNESH (I) 2.01 cm LVOT V max 1.1 m/s Max PG 9 mmHg LVOT VTI 0.25 m Mean PG 5 mmHg SV 72 ml Dim Index 0.70 SV index 42 ml/m CO 4.4 l/min CI 2.6 l/min/m Mitral Valve: MVA 4.2 cm MV P 1/2 52 msec Tricuspid Valve and estimated PA pressures: TR Vmax 2.4 m/s TR maxG 23 mmHg . This study was interpreted by an [facility] accredited facility. CC: [facility] (med records) [facility]. Final Procedure Note Yury Moya MD - 03/19/2025 ECHOCARDIOGRAM IRAIS FARRIS : 1955 69 years Study Date: 03/19/2025 2:57:34 PM Gender: F BP: 171/81 mmHg Height: 160.00 cm BSA: 1.70 m Weight: 67.00 kg Tech: TIFFANIE Referring MD: AVTAR VINSON Site: [facility] Reading Location: Mobile-OP Patient Location: Outpatient. Procedure: 2D, Color Doppler and Spectral Doppler. Indication for study: A Fib Cardiac Rhythm: Normal sinus and with premature atrial contractions.Studyquality: Excellent. Final Impressions: 1. Normal LV size, normal wall thickness, estimated EF of 65 - 70%. 2. Normal RV size and systolic function. 3. Mildly enlarged left atrium. 4. The aortic valve is trileaflet and sclerotic, no stenosis and trivialregurgitation. 5. The mitral valve is normal, mild mitral regurgitation. 6. The inferior vena cava is normal sized, respiratory size variationgreater than 50%. Chamber Sizes and Function Normal left ventricular size, normal wall thickness, normal globalsystolic function with an estimated EF of 65 - 70%. No resting regionalwall motion abnormality visualized. Left atrial size is mildly enlarged.Right ventricular cavity size is normal, global systolic RV function isnormal. RV wall thickness is normal. The right atrium is mildly enlarged.Right atrial volume index is 34 ml/m . Right atrial area is 19 cm . Thepulmonary artery is of normal size and origin. The sinus of Valsalva isnormal sized. The ascending aorta is normal sized. Valves, RV Pressures and Diastolic Function The aortic valve is trileaflet and sclerotic, no stenosis and trivialregurgitation. The mitral valve is normal in structure, mild mitralregurgitation. Indeterminate pattern of LV diastolic filling. Thetricuspid valve is normal in structure, mild tricuspid regurgitation. Thetricuspid regurgitant velocity is 2.4 m/s, the estimated right ventricularsystolic pressure is 23 mmHg plus right atrial pressure. The pulmonicvalve is normal. Trace pulmonary regurgitation. Masses, Effusion, Shunts There is no pericardial effusion. The inferior vena cava is normal sized,respiratory size variation greater than 50%. No left to right shunting wasdetected by limited color flow Doppler interrogation of the interatrialseptum. MEASUREMENTS AND CALCULATIONS 2-D Measurements and LV Function: LVID (d) 3.6 cm LV FS% (2D) 23 % LVID (s) 2.8 cm LVOT diameter 1.9 cm IVS (d) 0.9 cm HR 62 bpm LVPW (d) 1.0 cm LA Vol index 34 ml/m2 Ao Sinus 2.8 cm RA Vol index 34 ml/m2 Ao Sinus ULN 3.7 cm RA area 19 cm Asc Ao 2.4 cm RV Basal Diam 3.5 cm Asc Ao ULN 3.9 cm RV Mid Diam 3.1 cm LA 3.5 cm Diastology: Mitral Tissue Doppler E Peak 1.1 m/s e', Septum 0.08 m/s A Peak 0.9 m/s e', Lateral 0.09 m/s E/A 1.3 E/e' Average 12.73 DT 179 msec Aortic Valve: Vmax 1.5 m/s VIGNESH (V) 2.04 cm AI P 1/2 818 msec VTI 0.36 m VIGNESH (I) 2.01 cm LVOT V max 1.1 m/s Max PG 9 mmHg LVOT VTI 0.25 m Mean PG 5 mmHg SV 72 ml Dim Index 0.70 SV index 42 ml/m CO 4.4 l/min CI 2.6 l/min/m Mitral Valve: MVA 4.2 cm MV P 1/2 52 msec Tricuspid Valve and estimated PA pressures: TR Vmax 2.4 m/s TR maxG 23 mmHg . This study was interpreted by an [facility] accredited facility. CC: [facility] (med records) [facility]. Final us Avtar Vinson DO ECHO ORD Final Re sult * XR MAMMO LUANA BILAT SCREEN (11/24/2024 9:49 AM PHOTO RETOUCHER) Anatomical Region Laterality Modality BREASTS, Breast Left, Breast Right Bilateral Mammography Impressions 11/24/2024 1:03 PM PHOTO RETOUCHER There is no radiographic evidence for malignancy. Recommend annual mammograms. MAMMOGRAM ASSESSMENT: ACR 1 Negative PATIENTS: You will also receive a letter with your examination results in an easy to read format. If you have questions about your results, please contact your referring provider. Narrative 11/24/2024 1:03 PM PHOTO RETOUCHER For Patients: As a result of the Century Cures Act, medical imaging exams and procedure reports are released immediately into your electronic medical record. You may view this report before your referring provider. If you have questions, please contact your health care provider. XR MAMMO LUANA BILAT SCREEN [[id number]] CLINICAL HISTORY: This is an asymptomatic 69 [...] W REFLEX MEASURED LDL (11/18/2024 8:40 AM PHOTO RETOUCHER) CHOLESTEROL, TOTAL 230(H) <200 mg/dL [facility] [...] factors. LDL-C is now calculated using the Aubrey-Dawkins calculation, which is a validated novel method providing better accuracy than the Friedewald equation in the estimation of LDL-C. Aubrey SS et al. LESTER. 2013;310(19): 0555-4054 (http://education.Octavian.OptionEase/faq/WMJ558) CHOL/HDLC RATIO 3.5 <5.0 (calc) [facility] NON HDL CHOLESTEROL 164(H) <130 mg/dL (calc) [facility] Comment: For patients with diabetes plus 1 major ASCVD risk factor, treating to a non-HDL-C goal of <100 mg/dL (LDL-C of <70 mg/dL) is considered a therapeutic option. Blood BLOOD SPECIMEN / Unknown 11/18/2024 8:40 AM PHOTO RETOUCHER 11/18/2024 8:40 AM PHOTO RETOUCHER Solange [facility]MI[facility] Final Resu lt [employer] [facility] [address] [place] [address], [facility] [address] [place] [address] * XR DXA BONE DENSITY 2 SITES AXIAL (10/14/2020 10:55 AM PHOTO RETOUCHER) Anatomical Region Laterality Modality Spine, HIPS, HIPL, HIPR Other Narrative 10/26/2020 9:03 AM PHOTO RETOUCHER Please see scanned document for results of this study. us Jesi Soto MD DEXA Final Result * SCAN-COLONOSCOPY (09/25/2018 12:00 AM PHOTO RETOUCHER) Scanner OTHER Final Result from Last 3 Months or Most Recently Relevant to Health Maintenance Insurance [employer] MEDICARE ADVANTAGE MR Advance Directives Documents on File Type Date Recorded Patient Dope Dry House Operator Expl anation Healthcare Directive 11/04/2021 8:44 AM * Full Code (Latest Code Status on File) Date Activated Date Inactivated Comments 10/16/2007 9:48 AM 10/17/2007 4:25 PM * Full Code Date Activated Date Inactivated Comments 10/16/2007 6:08 AM 10/16/2007 9:48 AM Care Teams Business Development Assistant Relationship Specialty Start Date End Date Solange Ash PA [address] [place] [address] PCP - General Physician Laborer Cutting Tool 11/19/23
--- OUTSIDE RECORDS SUMMARY | 2025-03-20 00:56 | XMS_ITS | Clinical Summary ---
Author Organization [facility] Address [address], [place] [address] Care Team Providers Care Data Science And Iot Manager Name Role Phone Meagan García MD Primary Care Provider [phone] Source Comments You are receiving this document as you are listed as the primary care provider,follow-up provider, or the patient has been referred to you for consultation.This is in compliance with the Medicare andJoint [facility] Hospital[facility] EHR Incentive Program,which states Providers who transition their patient to another setting of careor provider of care or refers their patient to another provider of care shouldprovide summary care record for each transition of care or referral. [email or web address] Allergies No known active allergies Medications * [...] 500 mg by mouth daily. Active Multiple Vitamins-Hoop Expander als (CENTRUM SILVER OR) Take 1 tablet [...] of this encounter: 148 lb (67.1 kg). [place] Score: [place] Score: 8 Neck Circumference: 12.75 Device Name/Type: [...] 02/27/2005 07/27/2006 Varicella 12/30/1999 07/27/2006 Overview (06/24/2015): [facility] Immunizations Immunization Administration Dates Next Due Flu Vac (3+ yrs) 08/30/2012, 2,09/30/2010,2007,07/31/2007 H1n1 Miv Sanofi 3+ Yr (Injected) 10/23/2009 Influenza IIV4 (Quadrivalent ) 0.5mL ([id number]) 07/19/2017,08/01/2016,07/16/2015,2013 Influenza Vaccine QIV 3+ yrs 100% Pres Free ([facility]) 08/05/2013 Influenza, Unspecified Formulation 07/07/2009 [...] on file Not on fi le [place] Not on file Not on file Not on file Last Filed Vital Signs Vital Sign Reading Time Taken Comments Blood Pressure 139/79 11/28/2019 2:05 PM TOUCH UP EDGER Pulse 79 11/28/2019 2:05 PM TOUCH UP EDGER Temperature 36.6 C (97.9 F) 11/26/2017 1:06 PM TOUCH UP EDGER Respiratory Rate 18 11/28/2019 2:05 PM TOUCH UP EDGER Oxygen Saturation 96% 10/19/2017 9:43 AM TOUCH UP EDGER Inhaled Oxygen Concentration - - Weight 65.3 kg (144 lb) 11/28/2019 2:05 PM TOUCH UP EDGER Height 161.3 cm (5' 3.5) 11/26/2017 1:06 PM TOUCH UP EDGER Body Mass Index 25.11 11/26/2017 1:06 PM TOUCH UP EDGER Plan of Treatment Health Maintenance Due Date [...] this topic Medical Devices Implanted Type Area Clinical Reimbursement Specialist Device Identifier Shelf Expiration Date Model / Serial / Lot Mar-8930-12 - [id number] Implanted:Qty: 1 on 09/29/2013 by Gadiel Kaba DPM at [facility] DEVICE Right: FOOT AR-8930-1 2 / / Description:CFS 2MM QUICKIEF IX SCREWSCOMPREHENSIVE FOOT SYSTEM X12MM Nov-8931-13 - [id number] Implanted:Qty: 1 on 09/29/2013 by Gadiel Kaba DPM at [facility] DEVICE Right: FOOT AR-8931-1 3 / / Description:3MM QUICKIEFIX S CREW X13MM CFS- COMPREHENSIVE FOOT SYSTEM K-Wire .045 - [id number] Implanted:Qty: 1 on 09/29/2013 by Gadiel Kaba DPM at [facility] DEVICE Right: TOE K-Medic 71-102 / / Procedures Procedure Name Priority Date/Time Associated Diagnosis Comments COLONOSCOPY S 09/25/2018 MM MAMMOGRAM SCREENING BILAT W 3D ERLIN W CAD Routine 01/04/2018 1:42 PM CDT Visit for screening mammogram LIPID PANEL & DIRECT LDL (IF NEEDED) Routine 11/22/2016 10:50 AM TOUCH UP EDGER Screening for cholesterol level HEPATITIS C ANTIBODY, WITH REFLEX (ANTI-HCV) Routine 10/09/2014 10:12 AM TOUCH UP EDGER Need for hepatitis C screening test from [...] and Direct LDL(If Needed) (11/22/2016 10:50 AM TOUCH UP EDGER) Hours Fasting 13 hours [facility] Cholesterol 205(H) 0 - 199 mg/dl [facility] Triglyceride 92 0 - 149 mg/dl [facility] HDL 64 >40 mg/dl [facility] LDL, Calc. 123 0 - 129 mg/dl [facility] Non HDL Chol, Calc 141 mg/dl [facility] 11/22/2016 10:5 0 AM TOUCH UP EDGER 11/22/2016 10:51 AM TOUCH UP EDGER Narrative [facility] - 11/22/2016 6:34 PM TOUCH UP EDGER Performed at [facility], [address] [place], [place] [id number] Meagan García MD LAB_1 Final Result Performing Organization Address [facility] Co de Phone Number [facility] [phone] * HEPATITIS C ANTIBODY, WITH REFLEX (10/09/2014 10:12 AM TOUCH UP EDGER) Anti-HCV Negative (Non Reactive) NEGNR [facility] Comment:Does Not Rule Out In fection with HCV 10/09/2014 10:1 2 AM TOUCH UP EDGER 10/09/2014 10:13 AM TOUCH UP EDGER Narrative [facility] - 10/12/2014 12:35 PM TOUCH UP EDGER Performed at [facility], [address] [place] [address] us Meagan García MD LAB_1 Final Result Performing Organization Address [facility] Co de Phone Number [facility] [phone] from Last 3 Months or Most Recently Relevant to Health Maintenance Insurance [facility] MEDICARE HP PREVENTIVE FI FEDS DENTAL Advance Directives * No Code Status (Latest Code Status on File) Date Activated Date Inactivated Comments 07/14/2005 9:27 AM 07/14/2005 9:27 AM Care Teams Data Science And Iot Manager Relationship Specialty Start Date End Date Meagan García MD [address] [place] [address] PCP - General 05/15/05
--- OUTSIDE RECORDS SUMMARY | 2025-03-20 00:56 | XMS_ITS | Encounter Summary ---
Author Organization [facility] Address [address] [address] Care Team Providers Care Retail Merchandiser Name Role Phone Meagan García MD Primary Care Provider [phone] Encounter Details Date Type Department Care Team [...] on file Not on fi le [employer] [place] Not on file Not on file Not on file documented as of this encounter Plan of Treatment Not on file documented as of this encounter Visit Diagnoses Not on filedocumented in this encounter Care Teams Retail Merchandiser Relationship Specialty Start Date End Date Meagan García MD [address] [place] [address] PCP - General 05/15/05 documented as of this encounter
--- OUTSIDE RECORDS SUMMARY | 2025-03-20 00:56 | XMS_ITS | Encounter Summary ---
[facility] Address [address], [place] [address] Care Team Providers Care Sewing Machine Bobbin Winder Name Role Phone Meagan García MD Primary Care Provider [phone] Encounter Details Date Type Department Care Team (Late st Contact Info) Description 11/15/2012 Consent for Procedure/Treatme nt [facility] Department INFORMED CONSENT RECORD Social History Tobacco [...] on file Not on fi le [place] Not on file Not on file Not on file documented as of this encounter Progress Notes * [facility], PROVIDER - 11/15/2012 12:00 AM CST documented in this encounter Plan of Treatment Not on file documented as of this encounter Visit Diagnoses Not on filedocumented in this encounter Care Teams Sewing Machine Bobbin Winder Relationship Specialty Start Date End Date Meagan García MD [address] [place] [address] PCP - General 05/15/05 documented as of this encounter
--- OUTSIDE RECORDS SUMMARY | 2025-03-20 00:56 | XMS_ITS | Encounter Summary ---
[facility] Address [address], [place] [address] Care Team Providers Care Cafe Team Member Name Role Phone Meagan García MD Primary Care Provider [phone] Encounter Details Date Type Department Care Team [...] Razo Provider - 08/12/2012 12:00 AM CST FIC RATE ANALYST documented in this encounter Plan of Treatment Not on file documented as of this encounter Visit Diagnoses Not on filedocumented in this encounter Care Teams Cafe Team Member Relationship Specialty Start Date End Date Meagan García MD [address] [place] [address] PCP - General 05/15/05 documented as of this encounter
--- OUTSIDE RECORDS SUMMARY | 2025-03-20 00:56 | XMS_ITS | Data Portability ---
Author Organization [place] - [employer], [employer] - [employer] DIRECTOR OF DIGITAL TECHN[employer]Y [facility] Address [address] [facility] [address] [place] [address] Assessment Encounter Date Assessment Date Assessment LastModified [...] By Organization Details Last Modified Time 10/06/2024 [id number] Instructions for Corinne Morrison Date: October 06, 2024 Jonah Sun, Thank you for visiting [facility] today. Here [...] needed. [email or web address] Not available 10/06/2024 16:48:11 12/01/2024 [id number] Instructions for Corinne Morrison Date: October 06, [...] needed. ecram Not available 12/01/2024 17:02:10 12/29/2024 [id number] Instructions for Corinne Morrison Date: October 06, [...] needed. ecram Not available 12/29/2024 17:10:49 01/26/2025 [id number] Instructions for Corinne Morrison Date: October 06, [...] needed. ecram Not available 01/26/2025 16:34:27 02/23/2025 [id number] Instructions for Corinne Morrison Date: October 06, [...] Time Somatic dysfunctio n of pelvic region 816281996 Active 2024 Cornel Nicole DC [address] [place] [address],2[place], [address] , [facility] 5 18:57:39 Somatic dysfunctio n of sacral spine 607367771 Active 2024 Cornel Nicole DC [address] [facility], [place], [address] , [facility] 5 18:57:45 Spasm of muscle of lower back 2721530600054 9105 Active 2024 Cornel Nicole DC [address] [facility], [place], [address] , [facility] 5 18:57:56 Cervical segmental dysfunctio n 377481927 Active 2023 Cornel Nicole DC [address] [facility], [place], [address] , [facility] 4 19:05:41 Thoracic segmental dysfunctio n 047348407 Active 2023 Cornel Mik Nicole, JUAN CARLOS [address] [facility], [place], [address] , [facility] 4 19:05:41 Neck pain 79836625 Active 2023 Not Available [facility] 4 11:19:11 Lumbar segmental dysfunctio n 768546658 Active 2023 Cornel Mik Nicole, JUAN CARLOS [address] [facility], [place], [address] , [facility] 4 19:05:41 Problem Notes None recorded. Procedures Surgical History Date Name Laterality Status Provider Name and Address Organization Details Recorded Time 5 87753: Spinal manipulation , 3 to 4 regions completed Cornel Nicole, JUAN CARLOS [address] [facility], [place], [address], [facility] 02/23/2025 18:08:01 5 88018: Spinal manipulation , 3 to 4 regions completed Cornel Nicole, JUAN CARLOS [address] [facility], [place], [address], [facility] 01/26/2025 16:34:26 5 06938: Spinal manipulation , 3 to 4 regions completed Cornel Nicole, JUAN CARLOS [address] [facility], [place], [address], [facility] 12/29/2024 17:10:49 5 93123: Spinal manipulation , 3 to 4 regions completed Cornel Nicole, JUAN CARLOS [address] [facility], [place], [address], [facility] 12/01/2024 17:02:10 5 87277: Spinal manipulation , 3 to 4 regions completed Cornel Rodneym, DC [address] [facility], [place], [address], [facility] 10/06/2024 18:57:20 4 90205: Spinal manipulation , 3 to 4 regions completed Cornel Nicole DC [address] [facility], [place], [address], [facility] 09/12/2024 19:06:30 Imaging Results None recorded. Procedure [...] SNOMED-CT Code Diagnosis ICD10 Code Diagnosis Note [id number] JUAN CARLOS [facility] [address] [place] [address] [facility] KATY Gould [address] 09/12/2024 17:07:11 09/12/2024 19:08:59 Cervical segmental dysfunction 702068476 M99.01 Neck pain 73996107 M54.2 Thoracic s egmental dysfunction 237252231 M99.02 Lumbar seg mental dysfunction 409964269 M99.03 [id number] JUAN CARLOS [facility] [address] [facility] [place] [address] 10/06/2024 16:31:40 10/06/2024 16:42:19 Somatic dysfunction of pelvic region 961626910 M99.05 Somatic dy sfunction of sacral spine 469038920 M99.04 Cervical s egmental dysfunction 716725545 M99.01 Spasm of m uscle of lower back 1130271369 8331725 M62.830 [id number] Cornel Nicole DC [address] [facility] [place] [address] 12/01/2024 16:28:51 12/02/2024 18:46:36 Somatic dysfunction of pelvic region 826606225 M99.05 Somatic dy sfunction of sacral spine 922903116 M99.04 Cervical s egmental dysfunction 229799769 M99.01 Spasm of m uscle of lower back 6097969935 6379967 M62.830 [id number] Cornel Nicole DC [address] [facility] [place] [address] 12/29/2024 16:27:48 12/29/2024 17:18:18 Somatic dysfunction of pelvic region 474172407 M99.05 Somatic dy sfunction of sacral spine 125691871 M99.04 Cervical s egmental dysfunction 295515705 M99.01 Spasm of m uscle of lower back 9519518057 1247756 M62.830 [id number] Cornel Nicole DC [address] [facility] [place] [address] 01/26/2025 16:27:10 01/26/2025 18:02:57 Somatic dysfunction of pelvic region 125886389 M99.05 Somatic dy sfunction of sacral spine 814556799 M99.04 Cervical s egmental dysfunction 012810202 M99.01 Spasm of m uscle of lower back 1306816702 6140398 M62.830 [id number] Cornel Nicole DC [address] [facility] [place] [address] 02/23/2025 16:45:10 02/23/2025 18:44:00 Somatic dysfunction of pelvic region 737030085 M99.05 Somatic dy sfunction of sacral spine 444240788 M99.04 Cervical s egmental dysfunction 392452407 M99.01 Spasm of m uscle of lower back 1008365667 1186374 M62.830 Health Concerns Section Related Observation LastModified by Organization Detai ls LastModified Time None Recorded Concern Status LastModified by Organization Details LastModified Time None Recorded Advance Directives Directive None Recorded Payers Insurance Date Sequence Insurance Name Policy Number Policy Damian Covered Member ID Damian Member ID Guarantor Name 12/02/2024 1 [employer] - DOS ON OR AFTER 19 (MEDICARE REPLACEMENT/ ADVANTAGE - HMO) [id number] Corinne Morrison [id number] Corinne Morrison 09/16/2024 [facility] Corinne Morrison [id number] Corinne Morrison 09/12/2024 2 *SELF PAY* Co [...] surgical bootused postoperatively. Cornel Nicole DC [address] [facility], [address], [facility] 10/06/2024 18:58:09 12/01/2024 text/html The patient is a 69-year-old female who presents withpersistent swelling and ongoing soreness in her feetfollowing recent foot/toe surgery. She reportsdifficulty with normal propulsion, which she notes isimpacting her lower back. The patient hasrecently transitioned out of the surgical bootused postoperatively. Cornel Nicole DC [address] [facility], [place], [address], [facility] 12/01/2024 17:03:28 12/29/2024 text/html The patient is a 69-year-old female who presents withpersistent swelling and ongoing soreness in her feetfollowing recent foot/toe surgery. She reportsdifficulty with normal propulsion, which she notes isimpacting her lower back. The patient hasrecently transitioned out of the surgical bootused postoperatively. Cornel Nicole DC [address] [facility], [place], [address], [facility] 12/29/2024 17:11:54 01/26/2025 text/html The patient is a 69-year-old female who presents withpersistent swelling and ongoing soreness in her feetfollowing recent foot/toe surgery. She reportsdifficulty with normal propulsion, which she notes isimpacting her lower back. The patient hasrecently transitioned out of the surgical bootused postoperatively. Cornel Nicole DC [address] [facility], [place], [address], [facility] 01/26/2025 16:35:13 02/23/2025 text/html The patient is a 69-year-old female who presents withpersistent swelling and ongoing soreness in her feetfollowing recent foot/toe surgery. She reportsdifficulty with normal propulsion, which she notes isimpacting her lower back. The patient hasrecently transitioned out of the surgical bootused postoperatively. Cornel Nicole DC [address] [facility], [place], [address], [facility] 02/23/2025 18:08:49 OBGyn Episode No OBEpisode recorded.
== END 2025-03-19 14:46 | disposition home or self-care (01) ==
LOC: RAD 14:47
PROVIDERS: PCP Physician Assistant; Visit Provider Student in an Organized Health Care Education/Training Program
DX: I48.91 Unspecified atrial fibrillation (principal); I51.7 Cardiomegaly; I35.1 Nonrheumatic aortic (valve) insufficiency; I34.0 Nonrheumatic mitral (valve) insufficiency
CPT/HCPCS: 93306